=== PATIENT | male | born 1950 | race Caucasian/White ===

== ENCOUNTER 2024-10-02 18:29 | Emergency (ER) | payer OTHER, SELFPAY ==
[2024-10-02 18:32] VITALS: BP 174/98
[2024-10-02 19:00] LABS: % Basophils 0.7 % (0-2); % Eosinophils 3.9 % (0-6); % Immature Granulocytes 0.5 % (0-0.5); % Lymphocytes 25.9 % (20.5-51.1); Absolute Basophils 0.1 10^3/uL (0-0.2); Absolute Eosinophils 0.3 10^3/uL (0-0.7); Absolute Lymphocytes 1.9 10^3/uL (1.2-3.4); Absolute Monocytes 0.7 10^3/uL (0.1-0.6); Absolute Neutrophils 4.4 10^3/uL (1.4-6.5); Hematocrit 38.1 % (39.0-52.0); Hemoglobin 12.9 g/dL (13.0-18.0); Mean Corp Hgb Conc. 33.9 g/dL (33.0-37.0); Mean Corpuscular Hgb 30.3 pg (27.0-31.0); Mean Corpuscular Volume 89.4 fL (80.0-94.0); Mean Platelet Volume 10.2 fL (7.4-10.4); Nucleated Red Blood Cells % 0 % (-); Platelet Count 145 10^3/uL (130-400); Red Blood Cell Count 4.26 10^6/uL (4.70-6.10); Red Cell Dist. Width 14.9 % (11.5-14.5); White Blood Cell Count 7.4 10^3/uL (4.8-10.8)
[2024-10-02 19:20] LABS: ALT (SGPT) 36 U/L (0-50); AST (SGOT) 50 U/L (17-59); Albumin 4.2 g/dl (3.5-5.0); Alkaline Phosphatase 76 U/L (38-126); Blood Urea Nitrogen 18 mg/dl (9-20); Calcium 9.4 mg/dl (8.4-10.2); Carbon Dioxide 26 mmol/L (22-30); Chloride 101 mmol/L (98-107); Glucose 145 mg/dl (70-99); Potassium 4.2 mmol/L (3.5-5.1); Sodium 138 mmol/L (135-145); Total Protein 7.6 g/dl (6.3-8.2); eGFR 58.01
[2024-10-02 19:24] LABS: Troponin I < 0.012 ng/ml
[2024-10-02 20:15] VITALS: BP 186/94
[2024-10-02 21:00] VITALS: BP 153/83
--- NOTE | 2024-10-02 21:12 | ED.GENMED ---
History of Present Illness
General
Chief Complaint: Chest Pain
Source: patient
Exam Limitations: none
Time Seen by Provider: 10/02/24 20:41
History of Present Illness
History of Present Illness:
This is a 74 year old male that comes in with c/o chest pain and left flank/back pain. State that his chest pain comes and goes. States that he also has pain on the left lower back/flank area,below the ribs. State that this started on Monday.
States that he went to see the PCP last night and they did an ECG and told him this was normal and he was told to come to the Emergency room. States that he does get SOB with walking. Denies any fever, chills, abd pain, nausea, vomiting, diarrhea,
headache, dizziness, urinary burning
Past History
Past History
ED Past Medical History: HTN, IDDM and Other (Sleep apnea, AAA, Renal calculus)
ED Past Surgical History: Bowel resection (colostomy with reversal) and Cholecystectomy
Social History
Tobacco: Former smoker
Alcohol: None
Drug: None
Personal:
Living: with family
Review of Systems
Review of Systems
All Other Systems: ROS reviewed and negative except as documented in HPI and ROS
Constitutional: Reports no symptoms; Denies fever or chills
EENT: Reports no symptoms
Respiratory: Reports trouble breathing (with walking); Denies cough
Cardiac: Reports chest pain
ABD/GI: Denies no symptoms, abdominal pain, nausea, vomiting or diarrhea
: Reports flank pain (left sided)
Musculoskeletal: Reports no symptoms
Skin: Reports no symptoms
Neurological: Reports no symptoms; Denies dizzy or headache
Psychiatric: Reports no symptoms
Phy Exam
General Physical Exam
General Presentation: no apparent distress
General age: appears stated age
General Skin: warm and dry
General Habitus: elderly and obese
General Mental: alert
General Hydration: appears well hydrated
ENT Exam
ENT Exam: TM's normal, pharynx normal and neck supple
Eye Exam
Eye Exam: EOMI
Cardiovascular Exam
Cardiovascular Exam: regular rate/rhythm and normal peripheral pulses
Pulmonary Exam
Pulmonary Exam: lungs clear, no respiratory distress, no rales, chest non tender, no crackles, no rhonchi, no wheezing and no cough
Gastrointestinal Exam
Gastrointestinal Exam: normal bowel sounds, non tender, soft, no organomegaly, no pulsatile mass, non distended and other (Obese)
Musculoskeletal Exam
Musculoskeletal Exam: full ROM
Skin Exam
Skin Exam: normal color, warm/dry, no rash and no petechia
Psychiatric Exam
Psychiatric Exam: normal mood/affect
Scores
Heart Score for Chest Pain Patients
STEMI patient?: No
History: Slightly or Non-Suspicious
ECG: Normal
Age: >/= 65 years
Risk Factors: 1 or 2 Risk Factors
Troponin: </= Normal Limit
Heart Score for Chest Pain Patients: 3
Heart Score Risk: 2.5% MACE over next 6 weeks
Course
Orders/Labs/Results
Orders:
Orders
10/02/24 18:35
Electrocardiogram (*1) Urgent
Reason for Study: Chest Pain
EKG- Treatment ONCE
10/02/24 18:52
Complete Blood Count/With Diff Urgent
Comprehensive Metabolic Panel Urgent
Troponin I Urgent
10/02/24 21:12
CT Abd/pelvis W Iv Cont Urgent
Comment: AAA, 4.7cm
Reason For Exam: Left flank pain
10/02/24 21:13
0.9% Sodium Chloride 500 ml [Nss] 500 ml IV BOLUS
10/02/24 21:27
Troponin I Urgent
Urinalysis Reflex To Culture Urgent
Date Specimen was Collected: 10/02/24
Time Specimen was Collected: 21:15
Urine Microscopic Reflex Cult Urgent
Abnormal Lab Results
10/02/24 10/02/24
18:52 21:27
RBC 4.26 L 10^6/uL
(4.70-6.10)
Hgb 12.9 L g/dL
(13.0-18.0)
Hct 38.1 L %
(39.0-52.0)
RDW 14.9 H %
(11.5-14.5)
Absolute Monos (auto) 0.7 H 10^3/uL
(0.1-0.6)
Monocytes % 10.0 H %
(1.7-9.3)
Glucose 145 H mg/dl
(70-99)
Urine Albumin (Reflex) 1+ A
(Neg - Trace)
10/02/24 18:52
10/02/24 18:52
H/H slightly low. hyperglycemia. Troponin <0.012
Second Troponin <0.012
Vital Signs
Initial and Last Documented VS:
Initial Vital Signs
Temp Pulse Resp BP Pulse Ox
98.3 F 81 16 174/98 96
10/02/24 18:32 10/02/24 18:32 10/02/24 18:32 10/02/24 18:32 10/02/24 18:32
Last Documented Vital Signs
Temp Pulse Resp BP Pulse Ox
98.3 F 74 20 170/86 94
10/02/24 18:32 10/02/24 22:00 10/02/24 22:00 10/02/24 22:00 10/02/24 21:45
MDM/Problems Addressed
Differential Diagnosis Includes:
Renal calculus, coronary syndrome,
MDM/Problems Addressed:
This is a 74 year old male that comes in with c/o chest pain and left flank/back pain. states that this started on Monday.
Will check labs and get CT scan.
Back into see patient. Reviewed CT scan. Explained that both of his Troponin are normal. This may be musculoskeletal pain. Patient is to follow up with the family doctor. Patient can use heat or ice which ever makes him feel better. Patient can
take Tylenol 1000mg every 6 hours for pain Return with increased or changing pain.
Chronic conditions affecting care:
AAA, renal calculus,
Acute Exacerbation and/or Progression of Chronic Illness:
NA
*Radiology
Radiology exam reviewed: radiology read reviewed (CT-There is a 3.8cm fusiform infrarenal abdominal aortic aneurysm with associated fusiform dilation of the left common iliac artery to 2.8cm and right common iliac artery to 2.5cm. There are no
obstructing renal or ureteral calculi and there is no hydronephrosis. There is a 3mm nonobstructing), all reviewed NAD by ED Provider (CT cont- calculus in the interpolar portion of the left kidney. There area bilateral renal cysts measuring up to
2.4cm. There is multilevel lumbar degenerative disc disease. there is Proximal sigmoid anastomosis. There is cholecystectomy. There is diffuse fatty infiltration of the liver. There is a ) and other (T cont-2cm umbilical hernia which does not
contain bowel. )
*Pulse Oximetry
Patient hypoxic: no
*EKG
Interpreted by ED Provider?: Yes
Heart Rate: 80
Rate: normal
Rhythm: sinus
[place]: left axis deviation
Interval: normal interval
QRS Pattern: normal QRS
Ischemia: no ischemia
*Booth Supervisor Interpretation
Rate: normal
Heart Rate: 77
Rhythm: sinus
*Critical Care Note
Total Time (30-74mins, 75-104mins- exclusive of procedures): Not Applicable
ED Attending Note
-
Portions of this chart may have been created with voice recognition software.� Occasional wrong word or��sound alike� substitutions may have occurred due to the inherent limitations of voice recognition software.
Discharge Plan
Departure
Patient Disposition: Home (Routine Discharge)
Date of Disposition: 10/02/24
Time of Disposition: 23:08
Patient with high blood pressure during this ER visit?: Yes
Condition: Good
Covid-19: Not Applicable
Discharge Problem:
Back pain, Chest pain
Instructions: Back Pain, Chest Pain PCP Follow Up, BLOOD PRESSURE
Prescriptions:
No Action
naproxen sodium [Aleve] 220 MG tablet
220 mg PO PRN PRN (Reason: fever)
lorazepam 1 MG tablet
1 mg PO Q4HPRN PRN (Reason: anxiety) Qty: 20 0RF
cephalexin [Keflex] 500 MG capsule
500 mg PO TID Qty: 21 0RF
aspirin [Ecotrin Low Strength] 81 MG tablet,delayed release (DR/EC)
81 mg PO DAILY
metformin 1,000 MG tablet
1,000 mg PO BID
insulin asp prt-insulin aspart [Novolog Mix 70-30 U-100 Insuln] 1,000 UNITS/10 ML solution
15 - 18 units SC BID
Losartan
1 tab PO DAILY
Referrals:
Esther Riggs PA [Family Provider] - Follow up in 2-3 days
Activity Restrictions/Additional Instructions:
As discussed, your blood work is normal. Both Troponin which are specific for the heart are negative. Your CT shows a fatty liver but there are no renal calculus. There is a know Aneurysm. You have been given a disc of the CT scan to take to our
family doctor for follow up. This is most likely musculoskeletal pain. You may use heat or ice which ever makes you feel getter. You may also use Tylenol 1000mg every 6 hours for pain. IF YOU HAVE INCREASED OR CHANGING PAIN, OR YOU HAVE ANY OTHER
CONCERNS PLEASE RETURN TO THE EMERGENCY ROOM.
Interventions
Interventions:
*Risk Screen - Suicide Last Done: 10/02/24 18:35
*General Assessment Last Done: 10/02/24 20:22
*Neglect/Abuse Screening Last Done: 10/02/24 18:35
*ED COVID-19 Vaccine History Last Done: 10/02/24 20:22
ED- Cardiac Assessment Last Done: 10/02/24 20:22
Discharge Date and Time
Print Language: PALAUAN
[2024-10-02] MEDS: NSS 500 IV (21:23)
[2024-10-02 21:36] LABS: Urine Albumin 1+ (Neg - Trace); Urine Bilirubin Negative (Negative); Urine Character Clear (Clear); Urine Color Yellow; Urine Glucose Negative (Negative); Urine Ketone Negative (Negative); Urine Leukocyte Negative (Negative); Urine Nitrite Negative (Negative); Urine Occult Blood Negative (Negative); Urine Urobilinogen Negative (Neg - 1+)
[2024-10-02 21:59] LABS: Troponin I < 0.012 ng/ml
[2024-10-02 22:00] VITALS: BP 170/86
[2024-10-02 22:19] LABS: Urine Hyaline Cast 0-2 /LPF (0-2); Urine Squamous Cell >30 /LPF (Few)
[2024-10-02 22:20] LABS: Urine Red Blood Cell 0-2 /HPF (0-2); Urine White Cell 0-2 /HPF (0-5)
[2024-10-02 23:16] VITALS: BP 178/98
== END 2024-10-02 23:26 | disposition home or self-care (01) ==
LOC: EMR 18:29
PROVIDERS: Clinical Nurse Specialist Family Health; Student in an Organized Health Care Education/Training Program; EMERGENCY PHYSICIAN Emergency Medicine; FAMILY PHYSICIAN Physician Assistant Medical
DX: R07.89 Other chest pain (principal); R10.9 Unspecified abdominal pain; M54.50 Low back pain, unspecified; R06.02 Shortness of breath; K76.0 Fatty (change of) liver, not elsewhere classified; K42.9 Umbilical hernia without obstruction or gangrene; I71.43 Infrarenal abdominal aortic aneurysm, without rupture; M51.369 Other intervertebral disc degeneration, lumbar region without mention of lumbar back pain or lower extremity pain; E11.65 Type 2 diabetes mellitus with hyperglycemia; I10 Essential (primary) hypertension; G47.30 Sleep apnea, unspecified; N28.1 Cyst of kidney, acquired; Z79.4 Long term (current) use of insulin; Z79.82 Long term (current) use of aspirin; Z87.442 Personal history of urinary calculi; Z87.891 Personal history of nicotine dependence; Z90.49 Acquired absence of other specified parts of digestive tract; Z88.5 Allergy status to narcotic agent
CPT/HCPCS: 99285; 96360; 74177; 80053; 81003; 81015; 84484; 85025; 93005; Q9967

== ENCOUNTER 2025-05-03 17:20 | Inpatient (IN) | payer OTHER, MEDICARE, SELFPAY ==
[2025-05-03 12:54] VITALS: BP 186/109
[2025-05-03 13:25] VITALS: BMI 48.5
[2025-05-03 13:31] VITALS: BP 133/70
--- NOTE | 2025-05-03 14:36 | ED.GENMED ---
History of Present Illness
General
Chief Complaint: Skin Problem
Source: patient
Exam Limitations: none
Time Seen by Provider: 05/03/25 13:47
Nursing documentation reviewed up to this point in time: agreed with
History of Present Illness
History of Present Illness:
see MDM
Past History
Past History
ED Past Medical History: HTN, IDDM and Other (Sleep apnea, AAA, Renal calculus)
ED Past Surgical History: Bowel resection (colostomy with reversal) and Cholecystectomy
Social History
Tobacco: Former smoker
Alcohol: None
Drug: None
Personal:
Living: with family
Review of Systems
Review of Systems
Allergies reviewed?: Yes
All Other Systems: Not applicable
Phy Exam
Physical Exam
Physical Exam:
GENERAL: Alert , in no apparent distress exertional dyspnea; recovers at rest
EYE: pupils equal and reactive
NECK: Supple
ENT: o/p clr, mmm.
CARDIAC: Regular rate and rhythm .
LUNGS: Clear breath sounds bilaterally, no acute respiratory distress, no wheezes/rales/rhonchi
ABDOMEN: Soft, without focal tenderness, no r/g, no cvat, normal bowel sounds
NEUROLOGICAL: Alert and oriented, no focal neuro deficits
SKIN: Warm and dry, skin intact.
MUSCULOSKELETAL: dp pulses intact
toes all with onycomycosis
L great toe is ignificantly swollen, erythematous and with a wound with scab distally past the bumpy toenail plate that still is present with fungus; no drainage
no streaking proximally
mildly dtender
PSYCH: Normal and appropriate interaction.
Course
Orders/Labs/Results
Orders:
Orders
05/03/25 14:36
CR Foot - Left Min 3 Views Urgent
Comment:
Reason For Exam: great toe infection
05/03/25 14:54
CRP [C-Reactive Protein] Urgent
Complete Blood Count/With Diff Urgent
Comprehensive Metabolic Panel Urgent
ESR [Erythrocyte Sed Rate] Urgent
Blood Culture Q30M
CRUZITO Source: Blood/Venous
Specimen Description:
Blood Culture Q30M
CRUZITO Source: Blood/Venous
Specimen Description:
05/03/25 Dinner
2000 calorie (17 carb) Diabetic
At Your Request: Full Participation
Does patient need a safe tray?: No
05/03/25 15:40
Ampicillin/Sulbactam 3 G [Unasyn] 3 gm 0.9% Sodium Chloride 100 ml [Nss] 100 ml IV NOW
05/03/25 15:41
Vancomycin [Vancocin] 2,000 mg 0.9% Sodium Chloride 500 ml [Nss] 500 ml IV NOW
05/03/25 15:52
Vancomycin [Vancocin] 2,000 mg 0.9% Sodium Chloride 500 ml [Nss] 500 ml IV NOW
05/03/25 15:53
Ampicillin/Sulbactam 3 G [Unasyn] 3 gm 0.9% Sodium Chloride 100 ml [Nss] 100 ml IV NOW
05/03/25 16:45
Admit/Transfer Patient As Directed
Co-Sign Provider:
Level of Care: Inpatient admission
Assign to:: Medical/Surgical
Physician / Group: Hospitalist
Diagnosis: Diabetic infection of left foot
Reason for Hospitalization: Diabetic infection of left foot
Expected length of stay greater than two midnights?: Yes
ELOS- Estimated Length of Stay in days: 3
I certify the patient meets the requirements for IP care: Yes
PRN Pain Medication Management As Directed
May give lesser potent ordered pain med per pt: Yes
preference::
Protocol:: Medication orders for pain may be administered in a
manner that supports deferring to patient preference
when the pt is:
- Requesting an ordered lesser potent pain medication.
Least to most potent pain medications are defined
as: acetaminophen < NSAID < tramadol < opioids
(morphine, oxycodone, hydromorphone).
- Requesting a lesser dose of the same medication IF
ORDERED.
- Requesting a less intrusive route of administration
if both routes are prescribed by the provider (PO <
IV).
05/03/25 16:47
Code Status As Directed
Resuscitation Status: Full Code
05/03/25 18:06
Acetaminophen [Tylenol/Feverall] 650 mg RECTAL Q4HPRN PRN
Acetaminophen [Tylenol] 650 mg PO Q4HPRN PRN
Enoxaparin Sodium [Lovenox] 40 mg SC QPM
Lorazepam [Ativan] 1 mg PO Q4HPRN PRN anxiety
Piperacillin/Tazo 4.5 Gram [Zosyn] 4.5 gram in 100 ml IV Q6H
VANCOMYCIN Pharmacy to Dose [VANCOCIN Pharmacy to Dose] 1 each Pharmacy To Prepare [Call Pharmacy To Prepare] 0 ml IV PER PROTOCOL
05/03/25 18:06
Diabetes Education Consult Routine
Reason for Consult: Insulin Instruction
Newly Diagnosed?: No
PODIATRY CONSULT Routine
Consulting Provider: Viral Sosa
Was physician already notified: Yes
WOUND/OSTOMY CONSULT Routine
Reason for Consult: Left foot wound
Activity As Directed
Activity Level: Out of Bed-Early Mobility
Intake/ Output As Directed
Frequency: Per unit guidelines
Vital Signs As Directed
Frequency: Per unit guidelines
Lower Ext Arterial & CARLOS US [US Periph Art LOWER Ext w CARLOS] Routine
Comment:
Reason For Exam: faint pedal pulses and cellulitis of Left foot
DX Deep Vein Thrombosis Video Routine
05/03/25 18:39
MRSA Screen Routine
CRUZITO Source: Nose
Specimen Description:
05/03/25 20:00
insulin lispro protamin-lispro [Humalog Mix 75-25 KwikPen] 30 unit SC BID
05/04/25 06:22
Comprehensive Metabolic Panel IN AM
05/04/25 06:23
Complete Blood Count/No Diff IN AM
05/04/25 08:00
Citalopram [Celexa] 40 mg PO DAILY
Losartan [Cozaar] 100 mg PO DAILY
Sitagliptin Phosphate [Januvia] 100 mg PO DAILY
Abnormal Lab Results
05/03/25
14:54
RBC 3.62 L 10^6/uL
(4.70-6.10)
Hgb 11.3 L g/dL
(13.0-18.0)
Hct 32.9 L %
(39.0-52.0)
MCH 31.2 H pg
(27.0-31.0)
RDW 15.7 H %
(11.5-14.5)
Abs Immat Gran (auto) 0.2 H 10^3/uL
(0-0.05)
Absolute Monos (auto) 0.8 H 10^3/uL
(0.1-0.6)
Immature Gran % 2.8 H %
(0-0.5)
Lymphocytes % 16.3 L %
(20.5-51.1)
Monocytes % 9.8 H %
(1.7-9.3)
ESR 75 H mm/hour
(0-20)
Glucose 133 H mg/dl
(70-99)
Calcium 10.4 H mg/dl
(8.4-10.2)
C-Reactive Protein 12.60 H mg/L
(0.0-10.00)
05/03/25 14:54
05/03/25 14:54
Vital Signs
Initial and Last Documented VS:
Initial Vital Signs
Temp Pulse Resp BP Pulse Ox
36.9 C 96 16 186/109 99
05/03/25 12:54 05/03/25 12:54 05/03/25 12:54 05/03/25 12:54 05/03/25 12:54
Last Documented Vital Signs
Temp Pulse Resp BP Pulse Ox
37.1 C 75 18 130/68 97
05/04/25 07:36 05/04/25 08:38 05/04/25 07:36 05/04/25 08:38 05/04/25 07:36
MDM/Problems Addressed
Differential Diagnosis Includes:
see MDM
MDM/Problems Addressed:
Note:
CHIEF COMPLAINT(S)
Toenail injury with associated foot swelling and potential infection.
HISTORY OF PRESENT ILLNESS
The patient, a male, presented with concerns about a toenail injury sustained approximately three to four days ago. The patient reports the toenail came off while wearing sketchers, a type of covered shoe. Over the past few days, the area has become
increasingly swollen, raising concerns for possible infection. The patient has a history of diabetes and is currently on insulin and metformin. He denies fever or chills but expresses concern due to a family member, his brother, having had a leg
amputation related to diabetes. The patient experiences chronic shortness of breath as normal for him and reports mild neuropathy in his feet, which could contribute to delayed awareness of foot injuries. He denies any recent evaluations by a
assembler equipment and has not previously had similar infections.
PAST MEDICAL AND SURIGICAL HISTORY
The patient reports a history of diabetes and potentially some form of heart issue not conclusively identified as congestive heart failure, but suggests chronic heart concerns.
CHRONIC MEDICAL CONDITIONS SIGNIFICANTLY AFFECTING CARE
Diabetes mellitus
Possible cardiac condition requiring further evaluation (uncertain heart disease)
SOCIAL DETERMINANTS AFFECTING HEALTH
The patient is concerned about a family history of diabetes-related complications, specifically his brothers leg amputation, influencing his anxiety and prompting his visit.
MEDICATIONS
Insulin
Metformin
PHYSICAL EXAM
- Nursing notes reviewed and vital signs reviewed.
- onycomycosis
- Toenail is absent, and there is an increase in size and concern over the appearance of the injury site within a short time frame.
- The patient has chronic shortness of breath associated with his heart condition.
PLAN
The plan includes obtaining blood work and an X-ray to assess the extent of the infection. Discussion regarding possible hospital admission for IV antibiotics and advanced imaging, like an MRI, to rule out osteomyelitis was held. The patient
understands the necessity of prompt treatment to prevent further complications and is aware of the potential consequence of non-treatment as being very serious, including the risk of amputation. There is an implied consideration for hospital
admission if deemed necessary following initial results.
DIFFERENTIAL DIAGNOSIS
The Differential Diagnosis includes, in no particular order and is not limited to:
1. Diabetic foot infection
2. Osteomyelitis
3. Cellulitis
4. Traumatic nail removal
5. Peripheral neuropathy-related trauma
6. Chronic venous insufficiency
7. Heart failure exacerbation (related to swelling)
8. Gout
9. Onychomycosis with secondary bacterial infection
10. Peripheral vascular disease-related complications
74 y/o M
h/o DM
here with toe nail fungus chronically
injured L great toe nail somehow, isn't sure how, but there is a wound and bleeding distal great toe that became swollen, red, painful and draining over the past 3 days
no fever/chills
on exam pt's entire L great toe is swollen, red and there is pretty severe onycomycosis of all nails including L great toe nail plate and a wound with dried blood distally
pulseintact
crp elevated
xray indep reviewed, await rads report, no obvoius evidence of osteo
will admti for IV abx.
*Pulse Oximetry
SaO2: 94
Oxygen Mode of Delivery: Room air
Patient hypoxic: no (97)
*Critical Care Note
Total Time (30-74mins, 75-104mins- exclusive of procedures): Not Applicable
ED Attending Note
-
Portions of this chart may have been created with voice recognition software.� Occasional wrong word or��sound alike� substitutions may have occurred due to the inherent limitations of voice recognition software.
Discharge Plan
Departure
Patient Disposition: Admit
Date of Disposition: 05/03/25
Time of Disposition: 15:37
Admit to: Med/Surg
Presentation/result/management discussed w/ accepting MD/DO: Hospitalist
Condition: Fair
Covid-19: Not Applicable
Discharge Problem:
Diabetic infection of left foot
Interventions
Interventions:
*Risk Screen - Suicide Last Done: 05/03/25 20:51
*General Assessment Last Done: 05/03/25 13:26
*Neglect/Abuse Screening Last Done: 05/03/25 12:54
*ED- Fall Risk Assessment Last Done: 05/03/25 13:26
*ED COVID-19 Vaccine History Last Done: 05/03/25 13:26
*Nursing Disposition Last Done: 05/03/25 18:05
ED-Skin Assessment Last Done: 05/03/25 16:34
Discharge Date and Time
Discharge Date/Time: 05/03/25 18:06
[2025-05-03 15:20] LABS: Hematocrit 32.9 % (39.0-52.0); Hemoglobin 11.3 g/dL (13.0-18.0); Mean Corp Hgb Conc. 34.3 g/dL (33.0-37.0); Mean Corpuscular Volume 90.9 fL (80.0-94.0); Nucleated Red Blood Cells % 0 % (-); Platelet Count 161 10^3/uL (130-400); Red Cell Dist. Width 15.7 % (11.5-14.5)
[2025-05-03 15:32] LABS: C-Reactive Protein 12.60 mg/L (0.0-10.00)
[2025-05-03 15:43] LABS: ALT (SGPT) 30 U/L (0-50); AST (SGOT) 46 U/L (17-59); Albumin 4.0 g/dl (3.5-5.0); Alkaline Phosphatase 57 U/L (38-126); Blood Urea Nitrogen 20 mg/dl (9-20); Calcium 10.4 mg/dl (8.4-10.2); Carbon Dioxide 28 mmol/L (22-30); Chloride 104 mmol/L (98-107); Estimated Creatinine Clearance 74 ml/min; Glucose 133 mg/dl (70-99); Potassium 4.3 mmol/L (3.5-5.1); Sodium 139 mmol/L (135-145); Total Protein 7.5 g/dl (6.3-8.2); eGFR > 60.00
[2025-05-03 16:03] VITALS: BP 143/71
[2025-05-03] MEDS: UNASYN IV (16:08)
--- NOTE | 2025-05-03 16:34 | PHANOTE ---
med rec tech Eleanor Roberson note 05/03/25: pt tried to tell me the meds he takes, and then told me to just call [facility] pharmacy in [place]. I spoke to pharmacy staff there to confirm the meds he has been filling
[2025-05-03] MEDS: VANCOCIN 540 MG IV (16:47)
--- NOTE | 2025-05-03 16:54 | HPS.HSE ---
Family Physician
-
Family Physician: DOUGLAS Amor
Chief Complaint
-
Swelling of Left foot
History of Present Illness
This is a 74-year-old male with history of insulin requiring diabetes, history of abdominal aortic aneurysm, hypertension, anxiety presenting the emergency department with concerns of left foot pain, swelling and redness. Reports that initially his
symptoms started around Monday(4 days ago) when he was trying to wear covered shoes and his left foot great toe nail fell off. He had minimal pain initially which did continue to increase in addition to development of redness and swelling. He
denies fevers or chills. Denies any urinary or GI symptoms. He did not seek any care and did not utilize any medication. Given the ongoing redness and swelling he prompted to visit the emergency department. The patient is concerned about a
family history of diabetes related complication specifically his brother's leg amputation influencing his anxiety and his visit in the ER.
In the ER he had foot x-ray which did not show any acute abnormality.
Blood work showed hemoglobin of 11.3 with normal white count, ESR elevated to 75, CRP of 12.6, blood glucose of 133, calcium 10.4. Other electrolytes within normal limits.
He received 1 dose of IV Unasyn and 1 dose of IV vanco in the ER.
Medical History
Past Medical History
Past Medical History: Reports HTN, IDDM and Other (Anxiety)
Past Surgical History: Reports Other (Cataract)
Social History
Tobacco: Non-smoker
Alcohol: None
Drug: None
Personal:
Living: With Family
Family History
Family History: Diabetes
Allergies / Home Medications
Allergies reflects when Allergies were last updated in [email or web address].
Home Medications with original date entered in [email or web address]
Allergy/Medication List:
Allergies
Allergy/AdvReac Type Severity Reaction Status Date / Time
codeine Allergy 'I get Verified 05/03/25 12:57
crazy'
NOT.[id number] - Not Allergy Unknown Uncoded 05/03/25 12:57
Converted 38. See Text.
NOT.[id number] - Not Allergy Unknown Uncoded 05/03/25 12:57
Converted 65. See Text.
Home Medications
lorazepam 1 mg tablet 1 mg PO Q4HPRN PRN anxiety #20 tabs 03/16/11
naproxen sodium 220 mg tablet (Aleve) 660 mg PO PRN PRN mild pain 03/16/11
metformin 1,000 mg tablet 1,000 mg PO BID 06/18/16
citalopram 40 mg tablet 40 mg PO DAILY 05/03/25
insulin lispro protamine-lispro 100 unit/mL (75-25) subcutaneous pen (Humalog Mix 75-25 KwikPen) 30 unit SC BID 05/03/25
losartan 100 mg tablet 100 mg PO DAILY 05/03/25
sitagliptin phosphate 100 mg tablet (Januvia) 200 mg PO DAILY 05/03/25
Review of Systems
-
History Source: Patient
A 12 point ROS was completed and negative except as noted: Yes
Constitutional: Denies Fever
EENT: Denies Sore Throat
Respiratory: Denies Trouble Breathing
Cardiac: Denies Palpitations
Abdomen/GI: Denies Abdominal Pain
: Denies Dysuria or Frequency
Musculoskeletal: Denies Joint Pain
Physical Exam
Vital Signs
Vital Signs
Temp Pulse Resp BP Pulse Ox
98.4 F 82 18 143/71 99
05/03/25 12:54 05/03/25 16:26 05/03/25 16:26 05/03/25 16:03 05/03/25 16:26
Physical Exam
General: Well Nourished and Obese
HEENT: NormoCephalic
Respiratory: Clear and Non Labored Respirations
Cardiac: Regular Rhythm
GI: Soft, Non Tender and Distended
Musculoskeletal: Edema, Right Upper Extremity, Edema, Left Lower Extremity and Other (Erythema and swelling of left great toe. No visible discharge however there is only a partial left great toe nail, 2+ pedal pulse on the right and 1+ on the left )
Skin: Warm
Neuro: Awake, Alert and Oriented
Psych: Calm
Laboratory Results
-
05/03/25 14:54
05/03/25 14:54
Laboratory Results
Total Bilirubin 1.0 mg/dl (0.2-1.3) 05/03/25 14:54
AST 46 U/L (17-59) 05/03/25 14:54
ALT 30 U/L (0-50) 05/03/25 14:54
Alkaline Phosphatase 57 U/L (38-126) 05/03/25 14:54
Data Reviewed
-
Diagnostic Radiology: Report Reviewed by me, Discussed with Physician and Discussed with Patient
Lab Data: Labs Reviewed by me, Discussed with Physician, Discussed with Patient and Discussed with Family
Impression/Plan
-
74-year-old male with history of insulin requiring diabetes presenting in the emergency department with complaints of left foot pain, swelling and redness.
#Diabetic left foot infection ; possible cellulitis
# Onychomycosis with possible secondary bacterial infection
-Osteomyelitis is unlikely but not ruled out; will hold off on MRI for now
-Start Zosyn and Vanco empirically
-Awaiting blood cultures; check MRSA screen
-Foot x-ray without any acute abnormalities
-Check CARLOS for possible peripheral vascular disease
-Podiatry and wound consult
-Tylenol for pain
- ESR and CRP elevated; repeat in the a.m. with CBC and CMP
#Insulin-dependent diabetes
- Hold metformin, continue Januvia and home insulin with sliding scale
- Per patient last A1c 6.8; check A1c in the a.m.
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
# Hypertension
- Continue losartan
#Anxiety
- Continue citalopram
# History of abdominal aortic aneurysm
- Reported the last measurement was 3.8 cm
DVT prophylaxis: Lovenox
CODE STATUS: Full code
[2025-05-03 17:00] VITALS: BP 133/80
--- NOTE | 2025-05-03 17:13 | CM ---
CM reviewed chart and met with pt and bedside in ED, lives with in 2 story home, first floor half BA, second floor BR/full BA
Independent in ADLs, personal care and ambulation at baseline. No assistive devices.
No hx VN/SNF
PCP: Esther Riggs
Pharmacy: [facility] in [place] in [place]
CM will continue to follow for all discharge planning needs.
[2025-05-03 18:24] LABS: Glucose - Point of Care 171 mg/dl (70-99)
[2025-05-03 18:28] VITALS: BP 152/83; BMI 47.7
[2025-05-03] MEDS: LOVENOX 40 MG SC (18:31)
--- NOTE | 2025-05-03 18:31 | PHA.VAN.IN ---
Assessment
- Assessment
Renal Function: Appears similar to baseline
Maximum Temperature: 99.1F
Minimum Temperature: 98.4F
Concomitant Antimicrobials: Zosyn
AUC Dosing Plan
- Dosing Variables
Dosing Weight (kg): 137
Dosing CrCl (ml/min): 74
Vd coefficient (L/kg): 0.5
- Empiric Dosing
Initial / Loading Dose: 2000 mg
Maintenance Regimen: 1000 mg Q12H
Estimated AUC (mcg*h/mL): 448
Estimated Peak (mcg*h/mL): 26.2
Estimated Trough (mcg/ml): 12.7
Estimated Half Life (H): 10.5
- Monitoring
No levels ordered at this time: Awaiting steady state
Pharmacokinetics Vancomycin I
- -
Patient Age: 74
Patient Sex: Male
Vancomycin Day #: 1
Indication: Skin And Soft Tissue
Requesting Provider: Franck
Pertinent Antimicrobial Allergies:
No pertinent antibiotic allergies
Height / Weight:
Height 5 ft 7 in
Actual Weight 137.892 kg
IBW in k.1
Adjusted BW in k.8
Pertinent Past Medical History: T2DM c/b neuropathy, obesity
- Vital Signs / Lab Results
Temp Pulse Resp BP Pulse Ox
99.1 F 86 20 152/83 95
05/03/25 18:28 05/03/25 18:28 05/03/25 18:28 05/03/25 18:28 05/03/25 18:28
Lab Results - Hematology
05/03/25
14:54
WBC 8.1
Lab Results - Chemistry
05/03/25
14:54
BUN 20
Creatinine 1.2
Estimated Creat Clear 74
Albumin 4.0
--- NOTE | 2025-05-03 19:13 | PTCARENOTE ---
Received PT from ED. AAOX4. PT ambulated form srecher to bed. VSS WNL. Plan of care is ongoing.
[2025-05-03] MEDS: ZOSYN 100 IV (19:25)
[2025-05-03 19:55] LABS: Glucose - Point of Care 234 mg/dl (70-99)
[2025-05-03] MEDS: ATIVAN 1 MG PO (21:00)
[2025-05-03] MEDS: NOVOLOG MIX 70/30 FLEXPEN 30 UNITS SC (21:00)
[2025-05-03 23:25] VITALS: BP 103/57
[2025-05-04] MEDS: ZOSYN 100 IV ×5 (00:30→23:33)
[2025-05-04 06:30] VITALS: BMI 47.2
[2025-05-04 07:01] LABS: Hematocrit 29.6 % (39.0-52.0); Hemoglobin 10.0 g/dL (13.0-18.0); Mean Corp Hgb Conc. 33.8 g/dL (33.0-37.0); Mean Corpuscular Volume 90.5 fL (80.0-94.0); Platelet Count 138 10^3/uL (130-400); Red Cell Dist. Width 15.7 % (11.5-14.5)
[2025-05-04 07:33] LABS: ALT (SGPT) 27 U/L (0-50); AST (SGOT) 41 U/L (17-59); Albumin 3.5 g/dl (3.5-5.0); Alkaline Phosphatase 54 U/L (38-126); Blood Urea Nitrogen 19 mg/dl (9-20); Calcium 9.8 mg/dl (8.4-10.2); Carbon Dioxide 27 mmol/L (22-30); Chloride 105 mmol/L (98-107); Estimated Creatinine Clearance 63 ml/min; Glucose 121 mg/dl (70-99); Potassium 4.4 mmol/L (3.5-5.1); Sodium 137 mmol/L (135-145); Total Protein 6.6 g/dl (6.3-8.2); eGFR 53.07
[2025-05-04 07:36] VITALS: BP 130/68
[2025-05-04 07:40] LABS: C-Reactive Protein 15.40 mg/L (0.0-10.00)
--- NOTE | 2025-05-04 08:14 | W.PN.HOSP.TC ---
Addendum entered and electronically signed by Hafsa Lopez MD 05/04/25 12:47:
I saw and evaluated the patient. I reviewed the resident�s note and agree with findings and plan as documented in the resident�s note.
# L toe nail laceration, L foot cellulitis
Foot x-ray without any acute abnormalities
erythema improving on Abx
Cont Zosyn and Vanco empirically
Follow blood cultures
Check CARLOS for possible peripheral vascular disease although pedal pulse intact
Podiatry and wound care consult
PT eval
Original Note:
Today's Communication/Plan
-
Continue empiric Zosyn and Vanco
MRSA and wound culture pending
Podiatry consult pending
PT OT
Assessment / Plan
Assessment / Plan
74-year-old male with history of insulin requiring diabetes presenting in the emergency department with complaints of left foot pain, swelling and redness.
# Sepsis secondary to diabetic left foot infection ; nonpurulent cellulitis
# Onychomycosis with possible secondary bacterial infection
-Osteomyelitis is unlikely but not ruled out; will hold off on MRI for now
-Start Zosyn and Vanco empirically
-Awaiting blood cultures; MRSA pending
-Foot x-ray without any acute abnormalities
-Check CARLOS for possible peripheral vascular disease
-Podiatry and wound consult
-Tylenol for pain
- ESR 75-->82
- 12.6---> 15.4
#Insulin-dependent diabetes
- Hold metformin, continue Januvia and home insulin with sliding scale
- Per patient last A1c 6.8; repeat A1c pending
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
# Hypertension
- Continue losartan
#Anxiety
- Continue citalopram
# History of abdominal aortic aneurysm
- Reported the last measurement was 3.8 cm
# Morbidly obese; BMI of 47
- Encouraged low-carb diet, daily exercise.
DVT prophylaxis: Lovenox
CODE STATUS: Full code
Anticipated Discharge: 24 - 48 hours
Subjective/Interval History
-
Date of Service: May 04, 2025
Seen and examined at bedside. Patient sitting comfortably in the bed. AFVSS.
Objective Data
-
Labs:
Laboratory Results
05/04/25 05/04/25
06:22 06:23
WBC 7.3
Hgb 10.0 L
Hct 29.6 L
Plt Count 138
Sodium 137
Potassium 4.4
Chloride 105
Carbon Dioxide 27
BUN 19
Creatinine 1.4 H
Glucose 121 H
Calcium 9.8
Total Bilirubin 0.9
AST 41
ALT 27
Alkaline Phosphatase 54
Vital Signs:
Vital Signs
Temp Pulse Resp BP Pulse Ox
98.3 F 80 18 103/57 97
05/03/25 23:25 05/03/25 23:25 05/03/25 23:25 05/03/25 23:25 05/03/25 23:25
Review of Systems
-
History Source: Patient
All other systems: Reviewed and negative (Except as documented)
Physical Exam
-
General: Well Developed, No Apparent Distress and Obese
HEENT: Normocephalic
Respiratory: Clear to Auscultation and Non Labored Respirations
Cardiac: Regular Rhythm and S1/S2
GI: Soft and Nontender
Musculoskeletal: Edema, Right Lower Extrem and Edema, Left Lower Extrem
Skin: Warm, Dry and Other (pulses 2+ to RLE and 1+ to LLE. Left great toe with erythema and edema, absent toenail, no purulent drainage. Capillary refill <2 s. )
Neuro: Awake, Alert and Oriented
Psych: Calm
Data Reviewed
-
Labs: Labs Reviewed by me, Discussed with Physician and Discussed with Patient
--- NOTE | 2025-05-04 08:16 | PHA.VAN.FU ---
Vancomycin Assessment / Plan
- Assessment
Renal Function: SCR Increasing
WBC's are: WNL
In the past 24 hrs, patient has been: Afebrile
Concomitant Antimicrobials: piperacillin/tazobactam
- Dosing Plan
Continue: vancomycin 1000 mg Q12H
- Monitoring Plan
No level(s) ordered at this time: consider levels in next few days
- Follow Up
Pharmacy will continue to follow.
Vancomycin Follow UP
- -
Patient Age: 74
Patient Sex: Male
Vancomycin Day #: 2
Indication: Skin And Soft Tissue
Requesting Provider: Franck
Pertinent Antimicrobial Allergies:
No pertinent antibiotic allergies
Height / Weight:
Height 5 ft 7 in
Actual Weight 136.486 kg
IBW in k.1
Adjusted BW in k.8
Pertinent Past Medical History: T2DM c/b neuropathy, obesity
- Vital Signs / Lab Results
Temp Pulse Resp BP Pulse Ox
98.3 F 80 18 103/57 97
05/03/25 23:25 05/03/25 23:25 05/03/25 23:25 05/03/25 23:25 05/03/25 23:25
Lab Results - Hematology
05/03/25 05/04/25
14:54 06:23
WBC 8.1 7.3
Lab Results - Chemistry
05/03/25 05/04/25
14:54 06:22
BUN 20 19
Creatinine 1.2 1.4 H
Estimated Creat Clear 74 63
Albumin 4.0 3.5
[2025-05-04 08:17] LABS: Glucose - Point of Care 145 mg/dl (70-99)
[2025-05-04] MEDS: JANUVIA 100 MG PO (08:38)
[2025-05-04] MEDS: NOVOLOG FLEXPEN-LOW RESISTANCE SC ×3 (08:38→16:53)
[2025-05-04] MEDS: CELEXA 40 MG PO (08:38)
[2025-05-04] MEDS: COZAAR 100 MG PO (08:38)
[2025-05-04] MEDS: NOVOLOG MIX 70/30 FLEXPEN 30 UNITS SC ×2 (08:39→20:59)
[2025-05-04] MEDS: VANCOCIN 200 IV ×2 (08:41→19:51)
[2025-05-04] MEDS: TYLENOL 650 MG PO ×2 (08:43→19:51)
[2025-05-04 09:56] LABS: Glycohemoglobin (HgbA1c) 6.8 % (4.0-5.6)
[2025-05-04 10:15] VITALS: BP 130/67; PULSE 91
--- NOTE | 2025-05-04 10:21 | PTOTSP ---
Pt is able to get OOB and ambulate without an assistive device. No acute PT needs were identified. PT will sign off.
[2025-05-04 10:57] VITALS: BP 130/67; PULSE 91
[2025-05-04 11:52] LABS: Glucose - Point of Care 159 mg/dl (70-99)
--- NOTE | 2025-05-04 12:45 | W.CS.POD ---
Consult Summary - Podiatry
-
This patient is a 74 year old male with PMH of Insulin dependent DM with peripheral neuropathy, HTN, and h/o AAA admitted yesterday for cellulitis of the left foot. He states he was on vacation in [place] 2 weeks ago and he tried to trim his
toenails when the left great toenail 'fell off.' His dressed the area with Neopsporin every day. The family states he went in the pool a couple of times but with a waterproof dressing. Approximately 7-10 days ago, he started noticing swelling
and redness to the foot worsening with time, prompting him to come to the ER yesterday, at the urging of his daughter (nurse). He denies fever, chills or sweats. Reports only mild occasional discomfort in the toe/foot however he reports having some
numbness in both feet. He does not follow with a stock selector for diabetic foot care.
Afebrile, VSS
WBC: 7.3
ESR: 82
HbA1C: 6.8
Blood Cx x 2: Pending
Wound culture?
05/03/25: XRAY, left foot: There is no recent cortical fracture, dislocation or focal cortical bony destructive process. No evidence for osteomeyelitis.
LE Exam:
Pedal pulses palpable +2/4, bilaterally. Capillary refill to the digits 1-2 seconds, bilaterally. Significant loss of protective sensation of both LE.
Moderate edema and erythema of the left great toe and foot. No lymphangitis appreciated. There is dried blood and hypergranular tissue over the distal medial aspect of the exposed nail bed. Debridement reveals a 2-3mm wound, which probes directly to
bone (distal phalanx). This area is quite painful to the patient. No active purulence, no malodor. No proximal tracking.
Assessment:
Diabetic foot infection, with clinical suspicion for osteomyelitis, left great toe.
No radiographic evidence of osteomyelitis.
IDDM with diabetic neuropathy
HTN
H/O AAA
Plan:
Bedside excisional debridement of nonviable and hypergranular skin and SQ tissue about the left great toe wound, to a healthy bleeding base. Adaptic, dry gauze dressing applied.
Will order MRI to rule out osteomyelitis of the left great toe.
Patient advised to stay off the foot except for going from bed to bathroom.
Surgical shoe ordered.
Recommend ID consult.
[2025-05-04 15:09] VITALS: BP 114/55
[2025-05-04 16:49] LABS: Glucose - Point of Care 183 mg/dl (70-99)
[2025-05-04] MEDS: LOVENOX 40 MG SC (16:54)
[2025-05-04 20:48] LABS: Glucose - Point of Care 206 mg/dl (70-99)
[2025-05-04] MEDS: ATIVAN 1 MG PO (21:02)
[2025-05-04 23:12] VITALS: BP 109/53
[2025-05-05] MEDS: ZOSYN 100 IV ×3 (05:04→17:57)
--- NOTE | 2025-05-05 07:31 | W.PN.HOSP.TC ---
Addendum entered and electronically signed by Osiel Feng MD 05/05/25 22:10:
Attending Addendum-
I saw and evaluated the patient. I reviewed the resident�s note and agree with findings and plan as documented in the resident�s note. Sub: pain well controlled in left foot. Denies fevers chills. Full 12 point ROS reviewed and negative except as
documented Exam: Vitals reviewed in chart GEN-NAd heart RRR no MRG lungs clear abd soft obese LE- LLE bandaged no pain to palpation no edema b/l pulses +2 DP
# Sepsis secondary to diabetic left grat toe infection with cellulitis
# Onychomycosis with possible secondary bacterial infection
-r/o OM per pods with MRI-P
-cont Zosyn day 3 and DC Vanco
-blood cultures NGTD
-CARLOS b/l WNL
-8/10- pods bedside excisional debridement of nonviable and hypergranular skin and SQ tissue about the left great toe wound, to a healthy bleeding base
-CTM closely
#SOL
- unclear if CKD
- worsening, avoid NT agent renally adjust meds as warranted
- DC vanco hold losartan
- cont IVF
- BMP in am
#Insulin-dependent diabetes with diabetic neuropathy
- Hold metformin, continue Januvia and insulin 70/30 30BID (home dose) with sliding scale
# Hypertension
- hold losartan
#Anxiety
- Continue citalopram
# History of abdominal aortic aneurysm
- Reported the last measurement was 3.8 cm
# Morbidly obese; BMI of 47
- Encouraged low-carb diet, daily exercise.
DVT prophylaxis: Lovenox
CODE STATUS: Full code
ACP
Patient consented to discuss, was alone, time spent explanation of advance directives, changes in health status, patient�s health care wishes if the patient becomes unable to make health decisions, goals of care, code status, and prognosis 'yes do
it all if needed'- 16 minutes
Time spent coordinating care, review of plan of care with resident, personally reviewed previous records in EMR, med rec, labs, radiology, d/w nursing, family total time documented is exclusive of any additional time listed that was spent in advance
care planning discussion -�51 minutes
Original Note:
Today's Communication/Plan
-
Continue IV Zosyn for now; discontinue Vanco
MRI left foot
IV fluid
Repeat labs in the a.m.
Assessment / Plan
Assessment / Plan
74-year-old male with history of insulin requiring diabetes presenting in the emergency department with complaints of left foot pain, swelling and redness.
# Sepsis secondary to diabetic left foot infection ; nonpurulent cellulitis
# Onychomycosis with possible secondary bacterial infection
-Osteomyelitis is unlikely but not ruled out; podiatry ordered an MRI which is pending
-Maintain Zosyn day 3 and Vanco d/c since mrsa neg
-Awaiting blood cultures NGTD
-Foot x-ray without any acute abnormalities
-Normal CARLOS b/l
-Podiatry and wound following
-Tylenol for pain
-ESR 75-->82-->93
-CRP 12.6---> 15.4
--s/p 8/10 Bedside excisional debridement of nonviable and hypergranular skin and SQ tissue about the left great toe wound, to a healthy bleeding base
-- Advised to avoid pressure on the foot except going to the bathroom.; Podiatry also ordered a surgical shoe.
#SOL
- SCr increase from 1.4 to 1.7
- Could be due to sepsis
- IVF for now
- AVoid nephrotoxic drugs
- Creatine clearance of 52; no need to adjust lovenox and zosyn at this time.
#Insulin-dependent diabetes with diabetic neuropathy
- Hold metformin, continue Januvia and home insulin with sliding scale
- Per patient last A1c 6.8; repeat A1c 6.8
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
# Hypertension
- Continue losartan
#Anxiety
- Continue citalopram
# History of abdominal aortic aneurysm
- Reported the last measurement was 3.8 cm
# Morbidly obese; BMI of 47
- Encouraged low-carb diet, daily exercise.
DVT prophylaxis: Lovenox
CODE STATUS: Full code
Anticipated Discharge: Within 24 hours
Subjective/Interval History
-
Date of Service: May 05, 2025
seen and examined at bedside. lying comfortable in bed. Offers no new complaints.
Objective Data
-
Labs:
Laboratory Results
05/05/25
07:29
WBC Pending
Hgb Pending
Hct Pending
Plt Count Pending
Sodium Pending
Potassium Pending
Chloride Pending
Carbon Dioxide Pending
BUN Pending
Creatinine Pending
Glucose Pending
Calcium Pending
Vital Signs:
Vital Signs
Temp Pulse Resp BP Pulse Ox
98.3 F 75 18 109/53 98
05/04/25 23:12 05/04/25 23:12 05/04/25 23:12 05/04/25 23:12 05/04/25 23:12
I&O
05/04/25 05/05/25 05/06/25
06:59 06:59 06:59
Intake Total 1540 / 1540
Balance 1540 / 1540
Review of Systems
-
History Source: Patient
All other systems: Reviewed and negative (Except as documented)
Physical Exam
-
General: Well Developed, No Apparent Distress and Obese
HEENT: Normocephalic
Respiratory: Clear to Auscultation and Non Labored Respirations
Cardiac: Regular Rhythm and S1/S2
GI: Soft and Nontender
Musculoskeletal: Edema, Right Lower Extrem and Edema, Left Lower Extrem
Skin: Warm, Dry and Other (pulses 2+ to RLE and 1+ to LLE. Left great toe with erythema and edema, absent toenail, no purulent drainage. Capillary refill <2 s. )
Neuro: Awake, Alert and Oriented
Psych: Calm
Data Reviewed
-
Labs: Labs Reviewed by me, Discussed with Physician and Discussed with Patient
[2025-05-05 07:40] VITALS: BP 127/68
[2025-05-05 08:29] LABS: Glucose - Point of Care 126 mg/dl (70-99)
[2025-05-05] MEDS: NOVOLOG FLEXPEN-LOW RESISTANCE SC ×3 (08:59→18:55)
[2025-05-05] MEDS: VANCOCIN 200 IV (09:00)
[2025-05-05] MEDS: NOVOLOG MIX 70/30 FLEXPEN 30 UNITS SC ×2 (09:01→21:18)
[2025-05-05] MEDS: JANUVIA 100 MG PO (09:01)
[2025-05-05] MEDS: COZAAR 100 MG PO (09:01)
[2025-05-05] MEDS: CELEXA 40 MG PO (09:01)
[2025-05-05 09:13] LABS: Hematocrit 30.2 % (39.0-52.0); Hemoglobin 10.1 g/dL (13.0-18.0); Mean Corp Hgb Conc. 33.4 g/dL (33.0-37.0); Mean Corpuscular Volume 92.4 fL (80.0-94.0); Nucleated Red Blood Cells % 0 % (-); Platelet Count 132 10^3/uL (130-400); Red Cell Dist. Width 16.0 % (11.5-14.5)
--- NOTE | 2025-05-05 09:32 | WOUNDNOTE ---
L GREAT TOE TIP
--- NOTE | 2025-05-05 09:33 | WOUNDNOTE ---
[facility] RN note: Patient admitted with diabetic infection L great toe with ulcer. 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
See H&P for complete history.
PMH: IDDM, HTN, SUBHASH, AAA, former smoker (quit 30 years ago), obesity.
Wound Location and type/assessment: Patient admitted with: L distal great toe full thickness diabetic ulcer with yellow slough. L great toe with dull erythema, some edema. +Palpable L pedal pulse. Tract L foot edema. NRI and arterial Doppler on
order. Patient stated he is not interested in compression stockinet.
Appetite: good.
Pressure redistribution devices in place: [employer] Accumax. Patient moves self in bed. Dr. Sosa following who ordered WB L foot in surgical shoe from bed to bathroom. Discussed with RN Gian.
Plan: L great toe dressing changed.
Will confirm orders with Dr. Sosa.
Care plan to be updated and will follow peripherally as needed. Patient to follow up with business control manager.
[2025-05-05 09:37] LABS: Blood Urea Nitrogen 19 mg/dl (9-20); Calcium 9.5 mg/dl (8.4-10.2); Carbon Dioxide 28 mmol/L (22-30); Chloride 107 mmol/L (98-107); Estimated Creatinine Clearance 52 ml/min; Glucose 148 mg/dl (70-99); Potassium 4.8 mmol/L (3.5-5.1); Sodium 140 mmol/L (135-145); eGFR 42.04
--- NOTE | 2025-05-05 12:01 | PTCARENOTE ---
05/05/2025 DIABETES EDUCATION CONSULT
I met with Royce to review diabetes management. His last HbA1c was 6.8%, has been on Ozempic 0.25 mg for one month, and takes Humalog 75/25 BID. I educated Royce that he is currently prescribed Novolog sliding scale in addition to his other DM
medications. I educated and demonstrated on insulin injection technique, timing, and storage. Discussed intermediate and rapid acting insulin; onset/peak/duration. Discussed normal target glucose ranges and a monitoring schedule 15 minutes
before each meal when prescribed Novolog, and preprandial AM and/or bedtime as recommended by MD.
He wears a CGM, states his postprandial breakfast BS is typically 200 and if he eats PB and crackers for breakfast his glucose will increase to over 200 mg/dL. Discussed higher protein breakfast options to keep glucose levels more stable throughout
the day.
I educated on physiology of T2D, organ damage, managing with medications, monitoring BG, nutrition, activity, sleep and managing stress. I reinforced signs of hyperglycemia, hypoglycemia and hypoglycemia protocol; BS parameters and recommended HbA1c
goals, glucose tracker, medic alert bracelet and outpatient DSME program. Written material provided.
Encouraged patient to follow up with his PCP for post d/c appointment and to monitor medication and blood glucose levels. Provided list of endocrinologists, supervisor compressed yeast, and ophthalmologists if desired, and to contact insurance company to verify
in network status. Patient verbalized understanding.
[2025-05-05 12:41] LABS: Glucose - Point of Care 149 mg/dl (70-99)
[2025-05-05] MEDS: TYLENOL 650 MG PO (13:19)
[2025-05-05] MEDS: ATIVAN 1 MG PO ×2 (13:23→21:26)
[2025-05-05 15:40] VITALS: BP 106/47
[2025-05-05] MEDS: NSS 1000 IV (16:16)
[2025-05-05 17:54] LABS: Glucose - Point of Care 192 mg/dl (70-99)
[2025-05-05] MEDS: LOVENOX 40 MG SC (17:57)
--- NOTE | 2025-05-05 19:57 | W.PN.POD ---
Today's Communication
Today's Communication
Increasing clinical suspicion of osteomyelitis, left great toe.
Await MRI report. Anticipate need for surgical debridement tomorrow.
Assessment / Plan
-
Assessment:
Diabetic foot infection, with clinical suspicion for osteomyelitis, left great toe.
No radiographic evidence of osteomyelitis.
IDDM with diabetic neuropathy
HTN
H/O AAA
Plan:
Adaptic, dry gauze dressing applied.
Continue IV antibiotics.
Patient advised to stay off the foot except for going from bed to bathroom.
Surgical shoe ordered (DARCO wedge)
Recommend ID consult.
With the increasing clinical likelihood of osteomyelitis of the left great toe, I discussed with the patient the possible need for surgical debridement of the infected bone in order to spare the spreading of the infection more proximally.
Should this be necessary, we would anticipate surgery for tomorrow evening.
MRI report pending. Will follow.
Subjective
Chief Complaint
Diabetic infection, left great toe
Subjective
Patient seen sitting at bedside. Pain in toe /10. Denies fever, chills or sweats.
Objective
05/05/25: Arterial U/S, LE:
1. Normal ankle brachial indices on each side. Normal toe brachial indices.
2. Minimal arterial plaque, without focal significant arterial stenosis demonstrated on either side.
3. Normal spectral Doppler waveform analysis of each lower extremity.
Left Lower Extremity:
Left Brachial pressure: 139 mmHg
Left DPA: 131 mmHg
Left SAT TUTOR: 148 mmHg
Left CARLOS: DPA 0.94 SAT TUTOR 1.06,
Left TBI: 1.04
05/05/25: MRI left foot
My personal review of images reveals hypointense signal of the hallux distal phalanx on STIR views consistent with osteomyelitis, without clear hypertense signal on T1.
Will defer to radiology report.
Temp Pulse Resp BP Pulse Ox
98.3 F 69 16 106/47 97
05/05/25 15:40 05/05/25 15:40 05/05/25 15:40 05/05/25 15:40 05/05/25 15:40
05/05/25 08:30
05/05/25 08:30
Vital Signs and Lab results were reviewed.
Afebrile, VSS
WBC: 6.2
ESR: 82
HbA1C: 6.8
Blood Cx x 2: Negative x 48 hours.
05/03/25: XRAY, left foot: There is no recent cortical fracture, dislocation or focal cortical bony destructive process. No evidence for osteomeyelitis.
LE Exam:
Pedal pulses palpable +2/4, bilaterally. Capillary refill to the digits 1-2 seconds, bilaterally. Significant loss of protective sensation of both LE.
Moderate edema,erythema and cellulitis of the left foot and great toe somewhat improved. No lymphangitis appreciated.
The distal dorsal hallux wound within nail bed, now slightly larger at 0.6cm in diameter round, with fibrinous base, serous discharge, probing directly to bone (distal phalanx). This area is quite painful to the patient. No active purulence, no
malodor. No proximal tracking.
[2025-05-05 21:05] LABS: Glucose - Point of Care 218 mg/dl (70-99)
[2025-05-05 23:17] VITALS: BP 144/80
[2025-05-06] MEDS: ZOSYN 100 IV ×5 (00:37→23:53)
[2025-05-06] MEDS: NSS 1000 IV ×3 (03:33→23:53)
--- NOTE | 2025-05-06 07:17 | W.PN.HOSP.TC ---
Addendum entered and electronically signed by Osiel Feng MD 05/06/25 21:48:
Attending Addendum-
I saw and evaluated the patient. I reviewed the resident�s note and agree with findings and plan as documented in the resident�s note. Sub: complains of pain in left great toe. Denies fevers chills. Full 12 point ROS reviewed and negative except as
documented Exam: Vitals reviewed in chart GEN-NAd heart RRR no MRG lungs clear abd soft obese LE- LLE bandaged no pain to palpation no edema b/l pulses +2 DP
# Sepsis secondary to diabetic left great toe osteomyelitis with surrounding cellulitis
-Left Foot MRI 05/05-Acute osteomyelitis of the first distal phalanx adjacent to the distal first toe soft tissue wound
-cont Zosyn day #4
-blood cultures NGTD
-CARLOS b/l WNL
-05/04- pods bedside excisional debridement of nonviable and hypergranular skin and SQ tissue about the left great toe wound, to a healthy bleeding base
-for surgical debridement possibly partial toe amputation with pods-05/06
-c/s ID for management pos OP
-CTM closely
#SOL on CKD (probable)
- improving, avoid NT agents, renally adjust meds as warranted
- hold losartan
- cont IVF
- BMP in am
#Insulin-dependent diabetes with diabetic neuropathy
- Hold metformin, continue Januvia and insulin 70/30 30BID (home dose) with sliding scale (1/2 dose whe NPO)
# Hypertension
- hold losartan
#Anxiety
- Continue citalopram
# History of abdominal aortic aneurysm
- Reported the last measurement was 3.8 cm
# Morbidly obese; BMI of 47
- Encouraged low-carb diet, daily exercise.
DVT prophylaxis: Lovenox
CODE STATUS: Full code
Time spent coordinating care, review of plan of care with resident, personally reviewed records in EMR, med rec, consults, notes, labs, radiology, d/w nursing � 52 mins
Original Note:
Today's Communication/Plan
-
N.p.o. for surgical debridement today
Continue Zosyn for now
ID consult
Assessment / Plan
Assessment / Plan
74-year-old male with history of insulin requiring diabetes presenting in the emergency department with complaints of left foot pain, swelling and redness.
# Sepsis secondary to diabetic left foot infection ; nonpurulent cellulitis
# Onychomycosis with possible secondary bacterial infection
-Osteomyelitis. MRI: Acute osteomyelitis of the first distal phalanx adjacent to the distal first toe soft tissue wound.
-Maintain Zosyn day 4 and Vanco d/c since mrsa neg
-Awaiting blood cultures NGTD
-Foot x-ray without any acute abnormalities
-Normal CARLOS b/l
-Podiatry and wound following; surgical debridement planned for today
-Tylenol for pain
-ESR 75-->82-->93-->97
-CRP 12.6---> 15.4
--s/p 8/10 Bedside excisional debridement of nonviable and hypergranular skin and SQ tissue about the left great toe wound, to a healthy bleeding base
-- Advised to avoid pressure on the foot except going to the bathroom.; Podiatry also ordered a surgical shoe.
-- Consult ID
#SOL
- SCr increase from 1.4 to 1.7; with most recent to 1.5
- Could be due to sepsis
- IVF continue
- Avoid nephrotoxic drugs
- Creatine clearance of 52; no need to adjust lovenox and zosyn at this time.
#Insulin-dependent diabetes with diabetic neuropathy
- Hold metformin, continue Januvia and home insulin with sliding scale
- Per patient last A1c 6.8; repeat A1c 6.8
- coding educator input appreciated
- 1 time NovoLog 70/30 15 units today since there is a surgical plan and patient will be n.p.o.
# Hypertension
- Continue to hold losartan
#Anxiety
- Continue citalopram
# History of abdominal aortic aneurysm
- Reported the last measurement was 3.8 cm
# Morbidly obese; BMI of 47
- Encouraged low-carb diet, daily exercise.
DVT prophylaxis: Lovenox
CODE STATUS: Full code
Anticipated Discharge: 24 - 48 hours
Subjective/Interval History
-
Date of Service: May 06, 2025
Seen and examined at bedside. Lying in the bed comfortable. Offers no new complaints
Objective Data
-
Labs:
Laboratory Results
05/06/25
06:29
WBC Pending
Hgb Pending
Hct Pending
Plt Count Pending
Sodium Pending
Potassium Pending
Chloride Pending
Carbon Dioxide Pending
BUN Pending
Creatinine Pending
Glucose Pending
Calcium Pending
Vital Signs:
Vital Signs
Temp Pulse Resp BP Pulse Ox
98.8 F 73 18 144/80 96
05/05/25 23:17 05/05/25 23:17 05/05/25 23:17 05/05/25 23:17 05/05/25 23:17
I&O
05/05/25 05/06/25 05/07/25
06:59 06:59 06:59
Intake Total 1540 / 1540 1400 / 1400
Balance 1540 / 1540 1400 / 1400
Review of Systems
-
History Source: Patient
All other systems: Reviewed and negative (Except as documented)
Physical Exam
-
General: Well Developed, No Apparent Distress and Obese
HEENT: Normocephalic
Respiratory: Clear to Auscultation and Non Labored Respirations
Cardiac: Regular Rhythm and S1/S2
GI: Soft and Nontender
Musculoskeletal: Edema, Right Lower Extrem and Edema, Left Lower Extrem
Skin: Warm, Dry and Other (pulses 2+ to RLE and 1+ to LLE. Left great toe dressing in place. Capillary refill <2 s. )
Neuro: Awake, Alert and Oriented
Psych: Calm
Data Reviewed
-
MRI: Report Reviewed by me, Discussed with Physician, Discussed with Nurse and Discussed with Patient
Labs: Labs Reviewed by me, Discussed with Physician and Discussed with Patient
[2025-05-06 07:40] VITALS: BP 152/85
[2025-05-06 07:58] LABS: Hematocrit 29.6 % (39.0-52.0); Hemoglobin 9.8 g/dL (13.0-18.0); Mean Corp Hgb Conc. 33.1 g/dL (33.0-37.0); Mean Corpuscular Volume 91.4 fL (80.0-94.0); Nucleated Red Blood Cells % 0 % (-); Platelet Count 131 10^3/uL (130-400); Red Cell Dist. Width 15.9 % (11.5-14.5)
[2025-05-06] MEDS: NOVOLOG FLEXPEN-LOW RESISTANCE SC (08:00)
[2025-05-06 08:01] LABS: Glucose - Point of Care 147 mg/dl (70-99)
[2025-05-06] MEDS: SANTYL OINTMENT TOPICAL (08:09)
[2025-05-06] MEDS: JANUVIA 100 MG PO (08:09)
[2025-05-06] MEDS: CELEXA 40 MG PO (08:09)
[2025-05-06 08:47] LABS: Blood Urea Nitrogen 17 mg/dl (9-20); Calcium 9.1 mg/dl (8.4-10.2); Carbon Dioxide 25 mmol/L (22-30); Chloride 108 mmol/L (98-107); Estimated Creatinine Clearance 58 ml/min; Glucose 127 mg/dl (70-99); Potassium 4.1 mmol/L (3.5-5.1); Sodium 138 mmol/L (135-145); eGFR 48.85
[2025-05-06] MEDS: NOVOLOG MIX 70/30 FLEXPEN SC (09:09)
[2025-05-06] MEDS: NOVOLOG MIX 70/30 FLEXPEN 15 UNITS SC (09:36)
[2025-05-06 11:44] LABS: Glucose - Point of Care 196 mg/dl (70-99)
[2025-05-06] MEDS: NOVOLOG FLEXPEN-LOW RESISTANCE 1 UNITS SC ×2 (12:48→18:09)
[2025-05-06 15:30] VITALS: BP 128/67
--- NOTE | 2025-05-06 15:31 | CON.ID ---
Consultation
-
Date/Time Consultation Requested: May 06, 2025 1306
Date/Time Consultation Performed: May 06, 2025 1530
Requesting Provider: Dr. Diaz Juárez
Performing Provider: Dr. Deepa Talley
Reason for Consultation: Foot osteo
Chief Complaint / Past History
Chief Complaint
Great toe redness and swelling
History of Present Illness
74-year-old male with diabetes mellitus, neuropathy who presented to the ER on May 03 due to left first great toe infection. Approximately 2 weeks ago he was vacationing in [place]. He cut his toenails and noted that the entire left great toe
nail came off. No wounds at that time. He was applying antibiotic ointment. Then 3 days ago, he developed a wound at the tip of his great toe. His toe became swollen and red. The wound started draining. No fevers or chills. He was started on
Zosyn. Podiatry debrided the wound at bedside. Arterial duplex normal. However the MRI shows osteomyelitis at the distal phalanx next to the wound. He will be taking to the OR tonight. He reports his diabetes is under control. No complaints.
Past History
Additional Past Medical History:
Diabetes mellitus
Neuropathy
Hypertension
Anxiety/depression
AAA
Class III obesity BMI 47
Allergy History:
codeine Allergy (Verified 05/03/25 12:57)
'I get crazy'
NOT.TGUXIYTVP71 - Not Converted 38. See Text. Allergy (Uncoded 05/03/25 12:57)
Unknown
NOT.QEBULPIAK10 - Not Converted 65. See Text. Allergy (Uncoded 05/03/25 12:57)
Unknown
Medications Reviewed: Yes
Current Antibiotics:
Zosyn d4
Social History
Tobacco: Non-Smoker
Alcohol: None
Drug: None
Personal:
Family History
Family History: Not Pertinent
Review of Systems
Review of Systems
General: Negative Fever, Chills or Change in Appetite
HEENT: Negative Sinus Problems or Headache
Cardiovascular: Negative Chest Pain or Dyspnea
Respiratory: Negative Dyspnea or Cough
Gasteroenterology: Negative Nausea, Vomiting or Diarrhea
Genital / Urological: Negative Dysuria or Flank Pain
Endocrine: Negative Weakness
All systems: All other systems were reviewed and were negative
Vital Signs
Temp Pulse Resp BP Pulse Ox
98.2 F 82 16 152/85 95
05/06/25 07:40 05/06/25 07:40 05/06/25 07:40 05/06/25 07:40 05/06/25 07:40
Physical Exam
Physical Exam
Constitutional: No Acute Distress and Obese
Eyes: No Conjunctival Hemorrhage and Sclera Anicteric
Cardiovascular: Regular Rate and S1/S2
Pulmonary: Clear
Gastrointestinal: Soft, Non Tender, Non Distended and Normal Bowel Sounds
Extremities: Negative Edema
Wound: Other (Left left hallux, edematous, erythematous, at toe tuft positive deep wound, light yellow slough)
Lab / Diagnostic Study Results
05/06/25 06:29
05/06/25 06:29
Abs Immat Gran (auto) 0.1 10^3/uL (0-0.05) H 05/06/25 06:29
Absolute Neuts (auto) 4.7 10^3/uL (1.4-6.5) 05/06/25 06:29
Absolute Lymphs (auto) 1.1 10^3/uL (1.2-3.4) L 05/06/25 06:29
Absolute Monos (auto) 0.7 10^3/uL (0.1-0.6) H 05/06/25 06:29
Absolute Basos (auto) 0.0 10^3/uL (0-0.2) 05/06/25 06:29
Immature Gran % 0.9 % (0-0.5) H 05/06/25 06:29
Neutrophils % 69.2 % (42.2-75.2) 05/06/25 06:29
Lymphocytes % 16.4 % (20.5-51.1) L 05/06/25 06:
Monocytes % 10.4 % (1.7-9.3) H 05/06/25 06:29
Eosinophils % 2.5 % (0-6) 05/06/25:
Basophils % 0.6 % (0-2) 05/06/25 06:
ESR 97 mm/hour (0-20) H 05/06/25 06:29
C-Reactive Protein 15.40 mg/L (0.0-10.00) H 05/04/25 06:22
Microbiology Results
Micro:
05/03/25 14:54 Blood Culture - Preliminary
Blood/Venous No Growth in 72 hours- Final report to follow
05/03/25 14:54 Blood Culture - Preliminary
Blood/Venous No Growth in 72 hours- Final report to follow
05/03/25 18:39 MRSA Screen - Final
Nose No Methicillin Resistant Staphylococcus aureus isolated.
05/05/25 MRI LLE: Acute osteomyelitis of the first distal phalanx adjacent to the distal first toe soft tissue wound
Assessment / Plan
# Acute osteomyelitis of the left great toe
# Purulent cellulitis of the left great toe
# Diabetes mellitus with neuropathy
- Agree with partial toe amputation to achieve surgical cure.
- Continue Zosyn.
- Post-op, can transition to short course po abx for soft tissue coverage.
[2025-05-06 17:49] LABS: Glucose - Point of Care 171 mg/dl (70-99)
[2025-05-06] MEDS: LOVENOX 40 MG SC (18:14)
[2025-05-06] MEDS: TYLENOL 650 MG PO (21:05)
[2025-05-06] MEDS: NOVOLOG MIX 70/30 FLEXPEN 30 UNITS SC (21:06)
[2025-05-06] MEDS: ATIVAN 1 MG PO (21:06)
[2025-05-06 21:07] LABS: Glucose - Point of Care 242 mg/dl (70-99)
[2025-05-06 23:08] VITALS: BP 108/51
[2025-05-07] VITALS (12 sets, daily range): BP systolic 94–145; BP diastolic 52–86
[2025-05-07 00:34] LABS: Glucose - Point of Care 171 mg/dl (70-99)
[2025-05-07] MEDS: ZOSYN 100 IV ×4 (05:42→23:24)
[2025-05-07 06:04] LABS: Glucose - Point of Care 150 mg/dl (70-99)
[2025-05-07] MEDS: NOVOLOG MIX 70/30 FLEXPEN SC (07:12)
[2025-05-07] MEDS: NOVOLOG FLEXPEN-LOW RESISTANCE SC ×3 (07:52→17:11)
[2025-05-07] MEDS: NOVOLOG MIX 70/30 FLEXPEN 10 UNITS SC (07:53)
[2025-05-07] MEDS: CELEXA 40 MG PO (07:53)
[2025-05-07] MEDS: JANUVIA 100 MG PO (07:53)
[2025-05-07 08:01] LABS: Hematocrit 28.9 % (39.0-52.0); Hemoglobin 9.5 g/dL (13.0-18.0); Mean Corp Hgb Conc. 32.9 g/dL (33.0-37.0); Mean Corpuscular Volume 92.0 fL (80.0-94.0); Platelet Count 139 10^3/uL (130-400); Red Cell Dist. Width 16.1 % (11.5-14.5)
--- NOTE | 2025-05-07 08:06 | W.PN.HOSP.TC ---
Addendum entered and electronically signed by Osiel Feng MD 05/07/25 22:02:
Attending Addendum-
I saw and evaluated the patient. I reviewed the resident�s note and agree with findings and plan as documented in the resident�s note. Sub: seen post op complains of mild left great toe pain. Denies fevers chills. 'Im definitely not going to rehab!'
Seen with present on the phone during interview. Full 12 point ROS reviewed and negative except as documented Exam: Vitals reviewed in chart GEN-NAd heart RRR no MRG lungs clear abd soft obese LE- LLE bandaged no pain to palpation no edema b/l
pulses +2 DP
Plan:
# Sepsis secondary to diabetic left great toe osteomyelitis with surrounding cellulitis
-Left Foot MRI 05/05-Acute osteomyelitis of the first distal phalanx adjacent to the distal first toe soft tissue wound
-cont Zosyn day #5 ->Augmentin x 7 days on DC
-blood cultures NGTD
-CARLOS b/l WNL
-05/04- pods bedside excisional debridement of nonviable and hypergranular skin and SQ tissue about the left great toe wound, to a healthy bleeding base
-05/07-Partial hallux amputation, left - POD#0 - specimens sent for cx and path
-NWB x 24 hours post OP
-appreciate ID input
-CTM closely
#SOL on CKD (probable)
- improving, avoid NT agents
- hold losartan
- cont IVF
- BMP in am
#Insulin-dependent diabetes with diabetic neuropathy
- Hold metformin, continue Januvia and restart insulin 70/30 30BID (home dose) with sliding scale (1/2 dose when NPO)
# Hypertension
- hold losartan
#Anxiety
- Continue citalopram
# History of abdominal aortic aneurysm
- Reported the last measurement was 3.8 cm
# Morbidly obese; BMI of 47
- Encouraged low-carb diet, daily exercise.
DVT prophylaxis: Lovenox
CODE STATUS: Full code
Dispo DC home in 48 hours
Time spent coordinating care, review of plan of care with resident, personally reviewed records in EMR, med rec, consults, notes, labs, radiology, d/w nursing, present � 53 mins
Original Note:
Today's Communication/Plan
-
N.p.o. for surgical debridement today
Continue Zosyn for now
PT OT eval for dispo
Wound care follow postop
Assessment / Plan
Assessment / Plan
74-year-old male with history of insulin requiring diabetes presenting in the emergency department with complaints of left foot pain, swelling and redness.
# Sepsis secondary to diabetic left foot infection ; nonpurulent cellulitis
# Onychomycosis with possible secondary bacterial infection
-Osteomyelitis. MRI: Acute osteomyelitis of the first distal phalanx adjacent to the distal first toe soft tissue wound.
-Maintain Zosyn day 5
-Awaiting blood cultures NGTD
-Foot x-ray without any acute abnormalities
-Normal CARLOS b/l
-Tylenol for pain
-ESR 75-->82-->93-->97
-CRP 12.6---> 15.4
--s/p 8/10 Bedside excisional debridement of nonviable and hypergranular skin and SQ tissue about the left great toe wound, to a healthy bleeding base
-- Advised to avoid pressure on the foot except going to the bathroom.; Podiatry also ordered a surgical shoe.
-Podiatry and wound following; surgical debridement planned for today(partial toe imitation to achieve surgical cure)
- ID input appreciated.; Transition to short course p.o. antibiotic for soft tissue coverage postop.
#SOL
- SCr improving; 1.4 today
- Could be due to sepsis
- maintain IVF continue
- Avoid nephrotoxic drugs
- Creatine clearance of 52; no need to adjust lovenox and zosyn at this time.
#Insulin-dependent diabetes with diabetic neuropathy
- Hold metformin, continue Januvia at 100mg and home insulin with sliding scale
- Per patient last A1c 6.8; repeat A1c 6.8
- tobacco prevention health educator input appreciated
- 1 time NovoLog 70/30 10 units today since there is a surgical plan and patient will be n.p.o.
# Hypertension
- Continue to hold losartan
- stable
#Anxiety
- Continue citalopram
# History of abdominal aortic aneurysm
- Reported the last measurement was 3.8 cm
# Morbidly obese; BMI of 47
- Encouraged low-carb diet, daily exercise.
DVT prophylaxis: Lovenox
CODE STATUS: Full code
Anticipated Discharge: 24 - 48 hours
Subjective/Interval History
-
Date of Service: May 07, 2025
Seen and examined at bedside. Patient lying comfortable in the bed. Offers no new complaints. AFVSS
Objective Data
-
Labs:
Laboratory Results
05/07/25
06:58
WBC 6.3
Hgb 9.5 L
Hct 28.9 L
Plt Count 139
Sodium Pending
Potassium Pending
Chloride Pending
Carbon Dioxide Pending
BUN Pending
Creatinine Pending
Glucose Pending
Calcium Pending
Vital Signs:
Vital Signs
Temp Pulse Resp BP Pulse Ox
98.1 F 74 22 108/51 96
05/06/25 23:08 05/06/25 23:08 05/06/25 23:08 05/06/25 23:08 05/06/25 23:08
I&O
05/06/25 05/07/25 05/08/25
06:59 06:59 06:59
Intake Total 1400 / 1400 660 / 660
Balance 1400 / 1400 660 / 660
Review of Systems
-
History Source: Patient
All other systems: Reviewed and negative (Except as documented)
Physical Exam
-
General: Well Developed, No Apparent Distress and Obese
HEENT: Normocephalic
Respiratory: Clear to Auscultation and Non Labored Respirations
Cardiac: Regular Rhythm and S1/S2
GI: Soft and Nontender
Musculoskeletal: Edema, Right Lower Extrem and Edema, Left Lower Extrem
Skin: Warm, Dry and Other (pulses 2+ to RLE and 1+ to LLE. Left great toe dressing in place. Capillary refill <2 s. )
Neuro: Awake, Alert and Oriented
Psych: Calm
Data Reviewed
-
Labs: Labs Reviewed by me, Discussed with Physician and Discussed with Patient
[2025-05-07 08:22] LABS: Blood Urea Nitrogen 14 mg/dl (9-20); Calcium 9.1 mg/dl (8.4-10.2); Carbon Dioxide 24 mmol/L (22-30); Chloride 110 mmol/L (98-107); Estimated Creatinine Clearance 63 ml/min; Glucose 126 mg/dl (70-99); Potassium 4.2 mmol/L (3.5-5.1); Sodium 138 mmol/L (135-145); eGFR 53.07
[2025-05-07] MEDS: SANTYL OINTMENT TOPICAL (09:46)
--- NOTE | 2025-05-07 11:36 | W.PN.UPDATE ---
Update Note
Progress Note Update
PRE-OP
Planned procedure: Partial hallux amputation, left.
Discussed with patient the need to remove infected skin, soft tissue and bone of the left great toe, as well as the risks, benefits and possible complications of the procedure, including the possible need for further surgery. All of the patient's
questions were answered to his full satisfaction and understanding. Surgical consent obtained at bedside.
[2025-05-07 11:38] LABS: Glucose - Point of Care 131 mg/dl (70-99)
--- NOTE | 2025-05-07 11:41 | W.PN.UPDATE ---
Update Note
Progress Note Update
POST OP:
Procedure: Partial hallux amputation, left.
Prognosis: Good
EBL: less than 2cc.
Orders;
XRAYS left foot
NWB for 24 hours.
Resume Diet.
[2025-05-07 12:28] LABS: Glucose - Point of Care 131 mg/dl (70-99)
--- NOTE | 2025-05-07 12:50 | W.PN.ID1 ---
Date of Service
Date of Service: May 07, 2025
Today's Communication
See below.
Assessment / Plan
# Acute osteomyelitis of the left great toe
# Purulent cellulitis of the left great toe
# Diabetes mellitus with neuropathy
- 05/07 s/p partial toe amputation -> should achieve surgical cure.
- Continue Zosyn.
- At time of dc, transition to Augmentin 875mg po bid x 7 days for soft tissue coverage.
# Additional Past Medical History:
Diabetes mellitus
Neuropathy
Hypertension
Anxiety/depression
AAA
Class III obesity BMI 47
Chief Complaint
-: Cellulitis
Subjective / Review of Systems
Came back from OR. no pain.
Vital Signs / Physical Exam
Vital Signs
Vital Signs
Temp Pulse Resp BP Pulse Ox
98.0 F 68 20 131/73 95
05/07/25 12:30 05/07/25 12:30 05/07/25 12:30 05/07/25 12:30 05/07/25 12:30
Physical Exam
Constitutional: No Acute Distress and Obese
Cardiovascular: Regular Rate and S1/S2
Pulmonary: Clear
Gastrointestinal: Soft, Non Tender, Non Distended and Normal Bowel Sounds
Extremities: Negative Edema
Wound: Other (left foot post-op dressing dry)
Neurological: AO x 3
Objective Data
Lab Data
Lab Results
05/07/25 06:58
05/07/25 06:58
ESR 97 mm/hour (0-20) H 05/06/25 06:29
Estimated Creat Clear 63 ml/min 05/07/25 06:58
Total Bilirubin 0.9 mg/dl (0.2-1.3) 05/04/25 06:22
AST 41 U/L (17-59) 05/04/25 06:22
ALT 27 U/L (0-50) 05/04/25 06:22
Alkaline Phosphatase 54 U/L (38-126) 05/04/25 06:22
C-Reactive Protein 15.40 mg/L (0.0-10.00) H 05/04/25 06:22
Most recent labs reviewed.
Micro Results:
05/07/25 10:51 Tissue Culture - Pending
Toe Gram Stain - Pending
05/07/25 10:51 Anaerobic Culture - Pending
Toe
05/03/25 14:54 Blood Culture - Preliminary
Blood/Venous No Growth in 72 hours- Final report to follow
05/03/25 14:54 Blood Culture - Preliminary
Blood/Venous No Growth in 72 hours- Final report to follow
05/03/25 18:39 MRSA Screen - Final
Nose No Methicillin Resistant Staphylococcus aureus isolated.
05/05/25 MRI LLE: Acute osteomyelitis of the first distal phalanx adjacent to the distal first toe soft tissue wound
--- NOTE | 2025-05-07 13:33 | PTCARENOTE ---
Xray called for patient to come down for scan. Patient refused to go until after he eats lunch. Xray department notified.
[2025-05-07] MEDS: NSS IV (15:35)
--- NOTE | 2025-05-07 15:35 | PTCARENOTE ---
Per podiatry, nursing to no longer perform dressing changes to R toe post op. Podiatry will change only. Made resident and podiatry aware wound care orders are still standing and need to be discontinued.
[2025-05-07] MEDS: DILAUDID 0.5 MG IV ×2 (16:17→21:27)
[2025-05-07] MEDS: LOVENOX 40 MG SC (17:05)
[2025-05-07 17:15] LABS: Glucose - Point of Care 137 mg/dl (70-99)
[2025-05-07] MEDS: TYLENOL 650 MG PO (19:53)
[2025-05-07 21:23] LABS: Glucose - Point of Care 331 mg/dl (70-99)
[2025-05-07] MEDS: NOVOLOG MIX 70/30 FLEXPEN 30 UNITS SC (21:27)
[2025-05-08] MEDS: DILAUDID 0.5 MG IV ×3 (02:13→15:58)
[2025-05-08 03:43] VITALS: BP 120/62
[2025-05-08] MEDS: ZOSYN 100 IV (06:13)
--- NOTE | 2025-05-08 07:14 | W.PN.HOSP.TC ---
Addendum entered and electronically signed by Osiel Feng MD 05/08/25 20:47:
Attending Addendum-
I saw and evaluated the patient. I reviewed the resident�s note and agree with findings and plan as documented in the resident�s note. Sub: complains of mild left great toe pain. Denies fevers chills. Seen with present. No fevers chills rash
diarrhea. Full 12 point ROS reviewed and negative except as documented Exam: Vitals reviewed in chart GEN-NAD heart RRR no MRG lungs clear abd soft obese LE- LLE bandaged no pain to palpation no edema b/l pulses +2 DP
Plan:
# Sepsis secondary to diabetic left great toe osteomyelitis with surrounding cellulitis
-Left Foot MRI 05/05-Acute osteomyelitis of the first distal phalanx adjacent to the distal first toe soft tissue wound
-Zosyn day #6 ->Augmentin x 7 days today 05/08
-blood cultures NGTD
-CARLOS b/l WNL
-05/04- pods bedside excisional debridement of nonviable and hypergranular skin and SQ tissue about the left great toe wound, to a healthy bleeding base
-05/07-Partial hallux amputation, left - POD#1 - specimens sent for cx- pos staph aureus , path-clean margins
-NWB x 24 hours->may walk to bathroom-PT OT pending
-appreciate ID and pods input
-CTM closely
#SOL on CKD (probable)
- improving, avoid NT agents
- stable
- hold losartan restart on DC
- DC IVF
- BMP in am
#Insulin-dependent diabetes with diabetic neuropathy
- Hold metformin, continue Januvia and insulin 70/30 30BID (home dose) with sliding scale
# Hypertension
- hold losartan
#Anxiety
- Continue citalopram
# History of abdominal aortic aneurysm
- Reported the last measurement was 3.8 cm
# Morbidly obese; BMI of 47
- Encouraged low-carb diet, daily exercise.
DVT prophylaxis: Lovenox
CODE STATUS: Full code
Dispo DC home in AM
Time spent coordinating care, review of plan of care with resident, personally reviewed records in EMR, med rec, consults, notes, labs, radiology, d/w nursing, present � 51 mins
Original Note:
Today's Communication/Plan
-
switch to po antibiotics
Continue wound care per podiatry
PT OT assessment pending
follow on path and culture
Assessment / Plan
Assessment / Plan
74-year-old male with history of insulin requiring diabetes presenting in the emergency department with complaints of left foot pain, swelling and redness.
# Sepsis secondary to diabetic left foot infection ; nonpurulent cellulitis
# Onychomycosis with possible secondary bacterial infection
-Osteomyelitis. MRI: Acute osteomyelitis of the first distal phalanx adjacent to the distal first toe soft tissue wound.
-d/c Zosyn day 6; transition to Augmentin 875mg po bid x 7 days for soft tissue coverage per ID
-Awaiting blood cultures NGTD
-Foot x-ray without any acute abnormalities
-Normal CARLOS b/l
-Tylenol for pain
-ESR 75-->82-->93-->97
-CRP 12.6---> 15.4
--s/p 05/04 Bedside excisional debridement of nonviable and hypergranular skin and SQ tissue about the left great toe wound, to a healthy bleeding base
--Advised to avoid pressure on the foot except going to the bathroom.; Podiatry also ordered a surgical shoe.
- Podiatry and wound following; s/p Partial hallux amputation, left 05/07/24; awaiting additional recs
- path and culture pending
#SOL on possible CKD
- SCr improving. stable at 1.4
- Could be due to sepsis
- D/c IVF continue
- Avoid nephrotoxic drugs
- Creatine clearance of 52; no need to adjust lovenox and zosyn at this time.
#Insulin-dependent diabetes with diabetic neuropathy
- Hold metformin, continue Januvia at 100mg and home insulin with sliding scale
- Per patient last A1c 6.8; repeat A1c 6.8
- peer educator input appreciated
# Hypertension
- Continue to hold losartan
- stable
#Anxiety
- Continue citalopram
# History of abdominal aortic aneurysm
- Reported the last measurement was 3.8 cm
# Morbidly obese; BMI of 47
- Encouraged low-carb diet, daily exercise.
DVT prophylaxis: Lovenox
CODE STATUS: Full code
Anticipated Discharge: Within 24 hours
Subjective/Interval History
-
Date of Service: May 08, 2025
Seen and examined at bedside. AFVSS. Reports that he had increased pain in the left foot last night which required Dilaudid and he was able to sleep after that.
Objective Data
-
Labs:
Laboratory Results
05/08/25
07:13
WBC Pending
Hgb Pending
Hct Pending
Plt Count Pending
Sodium Pending
Potassium Pending
Chloride Pending
Carbon Dioxide Pending
BUN Pending
Creatinine Pending
Glucose Pending
Calcium Pending
Vital Signs:
Vital Signs
Temp Pulse Resp BP Pulse Ox
98.2 F 76 18 120/62 96
05/08/25 03:43 05/08/25 03:43 05/08/25 03:43 05/08/25 03:43 05/08/25 03:43
I&O
05/07/25 05/08/25 05/09/25
06:59 06:59 06:59
Intake Total 660 / 660 630 / 630
Balance 660 / 660 630 / 630
Review of Systems
-
History Source: Patient
All other systems: Reviewed and negative (Except as documented)
Physical Exam
-
General: Well Developed, No Apparent Distress and Obese
HEENT: Normocephalic
Respiratory: Clear to Auscultation and Non Labored Respirations
Cardiac: Regular Rhythm and S1/S2
GI: Soft and Nontender
Musculoskeletal: Edema, Right Lower Extrem and Edema, Left Lower Extrem
Skin: Warm, Dry and Other (pulses 2+ to RLE and 1+ to LLE. Left great toe dressing in place.)
Neuro: Awake, Alert and Oriented
Psych: Calm
Data Reviewed
-
Labs: Labs Reviewed by me, Discussed with Physician and Discussed with Family
[2025-05-08 07:30] VITALS: BP 111/57
[2025-05-08 08:26] LABS: Hematocrit 28.6 % (39.0-52.0); Hemoglobin 9.4 g/dL (13.0-18.0); Mean Corp Hgb Conc. 32.9 g/dL (33.0-37.0); Mean Corpuscular Volume 92.9 fL (80.0-94.0); Platelet Count 128 10^3/uL (130-400); Red Cell Dist. Width 16.2 % (11.5-14.5)
[2025-05-08 08:47] LABS: Glucose - Point of Care 129 mg/dl (70-99)
[2025-05-08] MEDS: NOVOLOG FLEXPEN-LOW RESISTANCE SC (08:54)
[2025-05-08 09:08] LABS: Blood Urea Nitrogen 14 mg/dl (9-20); Calcium 8.9 mg/dl (8.4-10.2); Carbon Dioxide 24 mmol/L (22-30); Chloride 109 mmol/L (98-107); Estimated Creatinine Clearance 63 ml/min; Glucose 112 mg/dl (70-99); Potassium 4.3 mmol/L (3.5-5.1); Sodium 138 mmol/L (135-145); eGFR 53.07
[2025-05-08] MEDS: CELEXA 40 MG PO (09:37)
[2025-05-08] MEDS: JANUVIA 100 MG PO (09:37)
[2025-05-08] MEDS: NOVOLOG MIX 70/30 FLEXPEN 30 UNITS SC ×2 (09:38→21:09)
[2025-05-08] MEDS: SANTYL OINTMENT 1 APPLIC TOPICAL (09:41)
--- NOTE | 2025-05-08 10:25 | W.PN.ID1 ---
Date of Service
Date of Service: May 08, 2025
Today's Communication
-Transition to Augmentin 875mg po bid x 7 more days for soft tissue coverage.
Assessment / Plan
# Acute osteomyelitis of the left great toe
# Purulent cellulitis of the left great toe
# Diabetes mellitus with neuropathy
- 05/07 s/p partial toe amputation -> should achieve surgical cure.
- DC Zosyn (d5)
-Transition to Augmentin 875mg po bid x 7 more days for soft tissue coverage.
# Additional Past Medical History:
Diabetes mellitus
Neuropathy
Hypertension
Anxiety/depression
AAA
Class III obesity BMI 47
Chief Complaint
-: Cellulitis
Subjective / Review of Systems
No complaints.
Vital Signs / Physical Exam
Vital Signs
Vital Signs
Temp Pulse Resp BP Pulse Ox
98.3 F 78 20 111/57 94
05/08/25 07:30 05/08/25 07:30 05/08/25 07:30 05/08/25 07:30 05/08/25 07:30
Physical Exam
Constitutional: No Acute Distress
Pulmonary: Clear
Gastrointestinal: Soft, Non Tender and Non Distended
Wound: Other (Left foot dressing dry)
Neurological: AO x 3
Objective Data
Lab Data
Lab Results
05/08/25 07:13
05/08/25 07:13
ESR 97 mm/hour (0-20) H 05/06/25 06:29
Estimated Creat Clear 63 ml/min 05/08/25 07:13
Total Bilirubin 0.9 mg/dl (0.2-1.3) 05/04/25 06:22
AST 41 U/L (17-59) 05/04/25 06:22
ALT 27 U/L (0-50) 05/04/25 06:22
Alkaline Phosphatase 54 U/L (38-126) 05/04/25 06:22
C-Reactive Protein 15.40 mg/L (0.0-10.00) H 05/04/25 06:22
Most recent labs reviewed.
Micro Results:
05/03/25 14:54 Blood Culture - Preliminary
Blood/Venous No Growth in 4 days- Final report to follow
05/03/25 14:54 Blood Culture - Preliminary
Blood/Venous No Growth in 4 days- Final report to follow
05/07/25 10:51 Tissue Culture - Pending
Toe Gram Stain - Preliminary
05/07/25 10:51 Anaerobic Culture - Pending
Toe
05/03/25 18:39 MRSA Screen - Final
Nose No Methicillin Resistant Staphylococcus aureus isolated.
05/05/25 MRI LLE: Acute osteomyelitis of the first distal phalanx adjacent to the distal first toe soft tissue wound
[2025-05-08] MEDS: AUGMENTIN 875 MG/125 MG 1 TABLET PO ×2 (11:29→20:23)
[2025-05-08 11:53] VITALS: BP 127/63
[2025-05-08 12:21] VITALS: BMI 48.1
[2025-05-08 12:55] LABS: Glucose - Point of Care 166 mg/dl (70-99)
[2025-05-08] MEDS: NOVOLOG FLEXPEN-LOW RESISTANCE 1 UNITS SC ×2 (13:01→17:23)
--- NOTE | 2025-05-08 14:30 | CM ---
PT/OT signed off on patient as he is functionally at baseline. Will need to determine if he has any ongoing Antibiotic needs or wound care.
Plan: Case management will continue to follow and assist with discharge planning. Home when stable, will watch for IV ABX needs or VN for wound care.
[2025-05-08 15:45] VITALS: BP 107/46
[2025-05-08] MEDS: TYLENOL 650 MG PO (15:58)
[2025-05-08] MEDS: LOVENOX 40 MG SC (17:23)
[2025-05-08 17:28] LABS: Glucose - Point of Care 178 mg/dl (70-99)
--- NOTE | 2025-05-08 18:04 | W.PN.POD ---
Today's Communication
Today's Communication
Surgical site stable and viable, left foot. Anticipate surgical cure.
Begin discharge planning. Monitor PO fever. Will see in AM.
Assessment / Plan
-
Assessment:
Diabetic foot infection, with osteomyelitis of the distal phalanx, left great toe.
S/P one day partial hallux amputation, left foot.
No radiographic evidence of osteomyelitis. MRI evidence of osteomyelitis of the distal tuft of the hallux distal phalanx, left.
IDDM with diabetic neuropathy
HTN
H/O AAA
Plan:
Surgical site stable and viable, left foot. Anticipate surgical cure.
ID note appreciated. Transition to Augmentin 875mg po bid x 7 more days
Adaptic, dry gauze dressing applied..
Patient advised to stay off the foot except for going from bed to bathroom.
Surgical shoe ordered (DARCO wedge)
Anticipate discharge planning.
Monitor PO fever. Will see in AM.
Subjective
Chief Complaint
S/P one day partial hallux amputation, left foot.
Subjective
Patient resting comfortably in bed. Throbbing pain in foot earlier in the day, well controlled by PO analgesics.
[place] feverish earlier, less so now. No chills or sweats.
Objective
05/05/25: Arterial U/S, LE:
1. Normal ankle brachial indices on each side. Normal toe brachial indices.
2. Minimal arterial plaque, without focal significant arterial stenosis demonstrated on either side.
3. Normal spectral Doppler waveform analysis of each lower extremity.
Left Lower Extremity:
Left Brachial pressure: 139 mmHg
Left DPA: 131 mmHg
Left CONTRACTS LAW PROFESSOR: 148 mmHg
Left CARLOS: DPA 0.94 CONTRACTS LAW PROFESSOR 1.06,
Left TBI: 1.04
05/05/25: MRI left foot
My personal review of images reveals hypointense signal of the hallux distal phalanx on STIR views consistent with osteomyelitis, without clear hypertense signal on T1.
Will defer to radiology report.
Temp Pulse Resp BP Pulse Ox
101.6 F H 78 20 107/46 95
05/08/25 15:45 05/08/25 15:45 05/08/25 15:45 05/08/25 15:45 05/08/25 15:45
05/08/25 07:13
05/08/25 07:13
05/07/25 Post-Op XRAYS, LEFT FOOT: Interval resection of distal left first toe. Mild soft tissue edema involving the left first toe as well as within the dorsum of the distal foot. No other acute radiographic abnormalities.
Vital Signs and Lab results were reviewed.
Temp 101.6, WBC 7.7
05/08/25Intra-Op Bone culture preliminary: Staph Aureus. Intra-Op Path report: Focal, acute osteomyelitis
Left foot:
Dressing with mild blood staining distally. Otherwise dry and intact.
Left hallux with moderate edema and ecchymosis related to surgery. Wound edges well apposed, sutures intact.
No active discharge or bleeding from wound. No malodor. No lymphangitis/cellulitis.
[2025-05-08 20:19] LABS: Glucose - Point of Care 216 mg/dl (70-99)
[2025-05-08] MEDS: ATIVAN 1 MG PO (20:27)
[2025-05-08 23:33] VITALS: BP 110/57
[2025-05-09] MEDS: TYLENOL 650 MG PO (01:51)
--- NOTE | 2025-05-09 07:10 | W.PN.HOSP.TC ---
Addendum entered and electronically signed by Osiel Feng MD 05/09/25 21:17:
Attending Addendum-
I saw and evaluated the patient. I reviewed the resident�s note and agree with findings and plan as documented in the resident�s note. Sub: 'I dont need PT Im doing great im going home' had single fever yesterday non since. Denies chills resp GI
or urinary sxs. . No fevers chills rash diarrhea. Full 12 point ROS reviewed and negative except as documented Exam: Vitals reviewed in chart GEN-NAD heart RRR no MRG lungs clear abd soft obese LE- LLE bandaged no pain to palpation no edema b/l
pulses +2 DP
Plan:
# Sepsis secondary to diabetic left great toe osteomyelitis with surrounding cellulitis
-Left Foot MRI 05/05-Acute osteomyelitis of the first distal phalanx adjacent to the distal first toe soft tissue wound
-Zosyn->Augmentin x 7 total days starting 05/08
-blood cultures NGTD
-CARLOS b/l WNL
-05/04- pods bedside excisional debridement of nonviable and hypergranular skin and SQ tissue about the left great toe wound, to a healthy bleeding base
-05/07-Partial hallux amputation, left - POD#1 - specimens sent for cx- pos MSSA-sensi resulted sens to Augmentin, path-clean margins
-was NWB x 24 hours post OP->may walk with surgical shoe
-appreciate ID and pods input
#SOL on CKD (probable)
- resolved
- held losartan restart on DC
#Insulin-dependent diabetes with diabetic neuropathy
- Hold metformin restart on DC, continue Januvia and insulin 70/30 30BID (home dose) with sliding scale
# Hypertension
- hold losartan
#Anxiety
- Continue citalopram
# History of abdominal aortic aneurysm
- Reported the last measurement was 3.8 cm
# Morbidly obese; BMI of 47
- Encouraged low-carb diet, daily exercise.
DVT prophylaxis: Lovenox
CODE STATUS: Full code
Dispo DC home with VN
Time spent coordinating care, DC planning, review of DC plan of care with resident, transition of care, review of records, med rec/scripts sent electronically, consults, notes, d/w consultants, nursing, family, and CM� 31 mins >50% of this time was
devoted to counseling and coordination of care
Original Note:
Today's Communication/Plan
-
Discharge home with home care.
Continue Augmentin to complete course for 7 days
Dressings to be kept clean, dry and intact until seen in office with podiatry on 05/13/2025.
Weight bearing left foot in wedged Darco shoe only
Assessment / Plan
Assessment / Plan
74-year-old male with history of insulin requiring diabetes presenting in the emergency department with complaints of left foot pain, swelling and redness.
# Sepsis secondary to diabetic left foot infection ; nonpurulent cellulitis
# Onychomycosis with possible secondary bacterial infection
-Osteomyelitis. MRI: Acute osteomyelitis of the first distal phalanx adjacent to the distal first toe soft tissue wound.
- Completed 6 days of Zosyn; Augmentin 875mg po bid x 7 days for soft tissue coverage per ID(day 2); will send the remaining prescription upon discharge
- Blood culture remain negative
-Foot x-ray without any acute abnormalities
-Normal CARLOS b/l
-Tylenol for pain; IV Dilaudid for severe pain
-ESR and CRP were elevated
-S/p 8/10 Bedside excisional debridement of nonviable and hypergranular skin and SQ tissue about the left great toe wound, to a healthy bleeding base
--Advised to avoid pressure on the foot except going to the bathroom.; Podiatry also ordered a surgical shoe.
- Podiatry and wound following; s/p Partial hallux amputation, left 05/07/24; POD#2
- Tissue culture positive for Staph aureus: Anaerobic culture pending
- Path with focal acute osteomyelitis in the amputated part with clear margins
#SOL on possible CKD
- Resolved
- Could be due to sepsis
- D/c IVF continue
- Avoid nephrotoxic drugs
- Creatine clearance of 52; no need to adjust lovenox and zosyn at this time.
#Insulin-dependent diabetes with diabetic neuropathy
- Hold metformin, continue Januvia at 100mg and home insulin with sliding scale
- Per patient last A1c 6.8; repeat A1c 6.8
- nurse informatics educator input appreciated
# Hypertension
- Continue to hold losartan
- stable
#Anxiety
- Continue citalopram
# History of abdominal aortic aneurysm
- Reported the last measurement was 3.8 cm
# Morbidly obese; BMI of 47
- Encouraged low-carb diet, daily exercise.
DVT prophylaxis: Lovenox
CODE STATUS: Full code
Anticipated Discharge: Today
Subjective/Interval History
-
Date of Service: May 09, 2025
Seen and examined at bedside. Reports that he has minimal pain. Offers no new complaints. Had 1 documented fever of 101.6 yesterday evening. Currently AFVSS.
Objective Data
-
Labs:
Laboratory Results
05/09/25
07:07
WBC Pending
Hgb Pending
Hct Pending
Plt Count Pending
Sodium Pending
Potassium Pending
Chloride Pending
Carbon Dioxide Pending
BUN Pending
Creatinine Pending
Glucose Pending
Calcium Pending
Vital Signs:
Vital Signs
Temp Pulse Resp BP Pulse Ox
98.6 F 79 18 110/57 97
05/09/25 04:23 05/08/25 23:33 05/08/25 23:33 05/08/25 23:33 05/08/25 23:33
I&O
05/08/25 05/09/25 05/10/25
06:59 06:59 06:59
Intake Total 630 / 630 2480 / 2480
Balance 630 / 630 2480 / 2480
Review of Systems
-
History Source: Patient
All other systems: Reviewed and negative (Except as documented)
Physical Exam
-
General: Well Developed, No Apparent Distress and Obese
HEENT: Normocephalic
Respiratory: Clear to Auscultation and Non Labored Respirations
Cardiac: Regular Rhythm and S1/S2
GI: Soft and Nontender
Musculoskeletal: Edema, Right Lower Extrem and Edema, Left Lower Extrem
Skin: Warm, Dry and Other (pulses 2+ to RLE and 1+ to LLE. Left great toe dressing in place.)
Neuro: Awake, Alert and Oriented
Psych: Calm
Data Reviewed
-
Labs: Labs Reviewed by me, Discussed with Physician and Discussed with Patient
[2025-05-09 07:55] VITALS: BP 141/69
[2025-05-09 08:06] LABS: Glucose - Point of Care 157 mg/dl (70-99)
[2025-05-09] MEDS: NOVOLOG FLEXPEN-LOW RESISTANCE 1 UNITS SC ×2 (09:06→12:29)
[2025-05-09] MEDS: NOVOLOG MIX 70/30 FLEXPEN 30 UNITS SC (09:06)
[2025-05-09] MEDS: JANUVIA 100 MG PO (09:06)
[2025-05-09] MEDS: CELEXA 40 MG PO (09:06)
[2025-05-09] MEDS: AUGMENTIN 875 MG/125 MG 1 TABLET PO (09:06)
[2025-05-09] MEDS: SANTYL OINTMENT 1 APPLIC TOPICAL (09:07)
[2025-05-09 09:40] LABS: Hematocrit 31.4 % (39.0-52.0); Hemoglobin 10.5 g/dL (13.0-18.0); Mean Corp Hgb Conc. 33.4 g/dL (33.0-37.0); Mean Corpuscular Volume 91.5 fL (80.0-94.0); Platelet Count 164 10^3/uL (130-400); Red Cell Dist. Width 16.2 % (11.5-14.5)
--- NOTE | 2025-05-09 09:42 | W.PN.UPDATE ---
Update Note
Progress Note Update
S/P 2 days partial left hallux amputation for acute osteomyelitis. Likely surgical cure.
Patient is now afebrile (fever likely due to anesthesia)
Surgical site is stable, viable, with no local signs of infection present
WB Left foot in wedged Darco shoe only.
Anticipate discharge to home today.
PO antibiotics as per ID.
Dressings to be kept clean, dry and intact until seen in office.
RTO in my office on 05/13/25.
[2025-05-09 09:52] LABS: Blood Urea Nitrogen 15 mg/dl (9-20); Calcium 9.5 mg/dl (8.4-10.2); Carbon Dioxide 21 mmol/L (22-30); Chloride 109 mmol/L (98-107); Estimated Creatinine Clearance 81 ml/min; Glucose 148 mg/dl (70-99); Potassium 4.3 mmol/L (3.5-5.1); Sodium 139 mmol/L (135-145); eGFR > 60.00
--- NOTE | 2025-05-09 11:03 | W.PN.ID1 ---
Date of Service
Date of Service: May 09, 2025
Today's Communication
Continue Augmentin 875mg po bid x 7 more days.
ID will sign off.
Assessment / Plan
# Acute osteomyelitis of the left great toe
# Purulent cellulitis of the left great toe
# Post-op fever x 1 resolved
# Diabetes mellitus with neuropathy
- 05/07 s/p partial toe amputation -> should achieve surgical cure.
- OR MSSA
-Continue Augmentin 875mg po bid x 7 more days.
ID will sign off.
# Additional Past Medical History:
Diabetes mellitus
Neuropathy
Hypertension
Anxiety/depression
AAA
Class III obesity BMI 47
Chief Complaint
-: Cellulitis
Subjective / Review of Systems
No complaints.
Vital Signs / Physical Exam
Vital Signs
Vital Signs
Temp Pulse Resp BP Pulse Ox
97.7 F 76 16 141/69 98
05/09/25 07:55 05/09/25 07:55 05/09/25 07:55 05/09/25 07:55 05/09/25 07:55
Selected Entries
05/08/25
15:45
Temp 101.6 F H
Physical Exam
Constitutional: No Acute Distress
Pulmonary: Clear
Gastrointestinal: Soft, Non Tender and Non Distended
Wound: Other (Left foot dressing dry)
Neurological: AO x 3
Objective Data
Lab Data
Lab Results
05/09/25 08:33
05/09/25 08:33
ESR 97 mm/hour (0-20) H 05/06/25 06:29
Estimated Creat Clear 81 ml/min 05/09/25 08:33
Total Bilirubin 0.9 mg/dl (0.2-1.3) 05/04/25 06:22
AST 41 U/L (17-59) 05/04/25 06:22
ALT 27 U/L (0-50) 05/04/25 06:22
Alkaline Phosphatase 54 U/L (38-126) 05/04/25 06:22
C-Reactive Protein 15.40 mg/L (0.0-10.00) H 05/04/25 06:22
Most recent labs reviewed.
Micro Results:
05/07/25 10:51 Tissue Culture - Preliminary
Toe S aureus-Methicillin Sensitive
Gram Stain - Preliminary
05/03/25 14:54 Blood Culture - Final
Blood/Venous No Growth - Final Report
05/03/25 14:54 Blood Culture - Final
Blood/Venous No Growth - Final Report
05/07/25 10:51 Anaerobic Culture - Preliminary
Toe Culture pending. Anaerobic cultures are examined after 3
days incubation. Additional information to follow.
05/03/25 18:39 MRSA Screen - Final
Nose No Methicillin Resistant Staphylococcus aureus isolated.
05/05/25 MRI LLE: Acute osteomyelitis of the first distal phalanx adjacent to the distal first toe soft tissue wound
[2025-05-09 12:24] LABS: Glucose - Point of Care 173 mg/dl (70-99)
[2025-05-09 12:42] VITALS: BP 163/87; PULSE 76; O2SAT 95
[2025-05-09 12:44] VITALS: BP 163/87; PULSE 76; O2SAT 95
[2025-05-09 12:59] VITALS: BP 157/88
--- NOTE | 2025-05-09 14:43 | VNURNOTE ---
Was notified by CM that pt in need of VN. Chart reviewed. Pt DC'ed before liaison could meet w/him. Called his cell phone, no answer, left message requesting call back. PM- [facility] referral placed in [facility].
--- NOTE | 2025-05-09 15:05 | CM ---
Met with patient and his at bedside. Reviewed IMM. Patient's signed IMM, it was reviewed and now on chart. Referral made to VN. No further needs were expressed.
Patient's transporting spouse home.
Plan: Case management will continue to follow and assist with discharge planning. Home with VN.
--- NOTE | 2025-05-09 16:02 | W.DCSUMMARY ---
Addendum entered and electronically signed by Osiel Feng MD 05/09/25 21:18:
Read, reviewed, and agree. See same day progress note for additional details.
Vito Feng MD
Original Note:
Documented by User: Diaz Juárez MD, Resident 05/09/25 16:21
Discharge Summary
Discharge Data
Date of Admission: 05/03/25
Date of Discharge: 05/09/25
-
Pending Results: Yes (Anaerobic culture)
Hospital Course
Discharging Physician : Diaz Juárez MD ; Osiel Feng MD
Disposition : Home with home care
Primary care physician : Esther vergara
Principal Discharge diagnosis : Sepsis secondary to diabetic left great toe osteomyelitis with surrounding cellulitis
Chronic Discharge diagnosis : SOL on CKD, insulin-dependent diabetes, hypertension, anxiety, history abdominal aortic aneurysm, morbid obesity
Hospital Course : 74-year-old male with history of insulin requiring diabetes presenting in the emergency department with complaints of left foot pain, swelling and redness. He was meeting SIRS criteria and was admitted to the hospital for further
evaluation.
1- Sepsis secondary to diabetic left great toe osteomyelitis with surrounding cellulitis
Foot x-ray did not show any acute abnormalities and he also had normal bilateral CARLOS. Podiatry was consulted and given the suspicion of cellulitis he was started on IV Zosyn which he remained on for 6 days and was transitioned to Augmentin p.o. at
the time of discharge. His insulin prescription was sent to the pharmacy to be utilized after discharge. During his stay we also performed blood cultures which remain negative. He received IV Dilaudid and Tylenol for pain. He had a bedside
excisional debridement of nonviable and hypergranular skin of the left great toe with podiatry on 05/04. Eventually decision was made for surgery and he had partial hallux amputation on 05/07/2024. Tissue cultures were obtained which showed Staph
aureus and her antibiotics were continued. Her anaerobic cultures remain pending at the time of discharge. He was instructed to follow-up with podiatry outpatient. Also left foot weightbearing only with the surgical shoe. He verified
understanding. He was stable for discharge and high risk case manager health arranged visiting nurse to help with the wound care and dressings.
2- SOL on possible CKD
In addition to his sepsis he also had SOL which was likely related to the sepsis and he was started on IV fluids which eventually helped to resolving the SOL.
4-Uxnxmah-bsidytikn diabetes with diabetic neuropathy
His home Januvia and home insulin was continued. We hold metformin during his stay at the hospital and A1c was 6.8.
4-Hypertension
His home losartan was on hold during his stay given the SOL however it was resumed at the time of discharge
5-Anxiety
His home citalopram was continued during his stay
6-Morbidly obese; BMI of 47
Encouraged low-carb diet, daily exercise.
Important imaging findings : Foot x-ray 05/03/2025.
No finding to suggest recent cortical fracture or focal cortical bony destructive process.
MR Left Le Joint W W/o:
Acute osteomyelitis of the first distal phalanx adjacent to the distal first toe soft tissue wound.
US Periph Art LOWER Ext w CARLOS:
IMPRESSION:
1. Normal ankle brachial indices on each side. Normal toe brachial indices.
2. Minimal arterial plaque, without focal significant arterial stenosis demonstrated on either side.
3. Normal spectral Doppler waveform analysis of each lower extremity.
Foot x-ray 05/07/2025
Interval partial resection of the distal left first toe
Procedure findings : Partial hallux amputation, left. On 05/07/2025
Discharge Plan
-
Patient Disposition: Home with Home Care
Discharge Diagnosis/Procedures: Sepsis secondary to diabetic left great toe osteomyelitis with surrounding cellulitis
Condition: Fair
Diet: Diabetic, Carb Controlled
Activity: Do not bear weight L leg
Additional Activity: weight bearing in left shoe with wedge darco shoe only
Driving Restrictions: Not until seen by your Dr
Bathing Restrictions: OK to Shower
Other Services: VN
Activity Restrictions/Additional Instructions:
Wound Care Instructions
L partial great toe amp site-local care as per knitted garment finisher's instructions.
DARCO SHOE WEIGHT BEARING L FOOT IN SURGICAL SHOE FROM BED TO BATHROOM ONLY.
Elevate heels off bed with pillow/s.
Follow up with Dr. Luis Angel Sosa knitted garment finisher.
Referrals:
Viral Sosa DPM [Specified Professional Personl, Podiatry] - 05/13/25
Esther Vergara PA [Family Provider, General] - in less than 1 week
Additional Discharge Medication Instructions: Take amoxicillin clavulanate 1 tab by mouth twice daily to complete course of 7 days
Please take Januvia 100 mg tablet daily if you are taking more than that please follow-up with the family doctor as the maximum dose is 100 mg daily
Prescriptions:
New
amoxicillin-pot clavulanate 875-125 mg Tablet
1 tab PO Q12 Qty: 13 0RF
Continued
naproxen sodium [Aleve] 220 MG tablet
660 mg PO PRN PRN (Reason: mild pain)
lorazepam 1 MG tablet
1 mg PO Q4HPRN PRN (Reason: anxiety) Qty: 20 0RF
Patient Comments:
last filled 10/30/2023 #10, but pt states that he takes it every day
metformin 1,000 MG tablet
1,000 mg PO BID
losartan 100 mg Tablet
100 mg PO DAILY
citalopram 40 mg Tablet
40 mg PO DAILY
insulin lispro protamin-lispro [Humalog Mix 75-25 KwikPen] 100 unit/mL (75-25) Insulin Pen
30 unit SC BID
Januvia 100 mg Tablet
200 mg PO DAILY
Patient Comments:
pt states that he takes 200mg daily, but pharmacy has no record of this being filled. pt states that he uses only one pharmacy
Discharge Orders:
Discharge Patient (As Directed); Ordered 05/09/25
Ordered By: Diaz Juárez
Discharge Date and Time
Discharge Date/Time: 05/09/25 14:22
Print Language: GREENLANDIC

Documented by User: Osiel Feng MD 05/09/25 21:10
Discharge Summary
Discharge Data
Date of Admission: 05/03/25
Date of Discharge: 05/09/25
Discharge Plan
-
Patient Disposition: Home with Home Care
Discharge Diagnosis/Procedures: Sepsis secondary to diabetic left great toe osteomyelitis with surrounding cellulitis
Condition: Fair
Diet: Diabetic, Carb Controlled
Activity: Do not bear weight L leg
Additional Activity: weight bearing in left shoe with wedge darco shoe only
Driving Restrictions: Not until seen by your Dr
Bathing Restrictions: OK to Shower
Other Services: VN
Activity Restrictions/Additional Instructions:
Wound Care Instructions
L partial great toe amp site-local care as per knitted garment finisher's instructions.
DARCO SHOE WEIGHT BEARING L FOOT IN SURGICAL SHOE FROM BED TO BATHROOM ONLY.
Elevate heels off bed with pillow/s.
Follow up with Dr. Luis Angel Sosa knitted garment finisher.
Referrals:
Viral Sosa DPM [Specified Professional Personl, Podiatry] - 05/13/25
Esther Vergara PA [Family Provider, General] - in less than 1 week
Additional Discharge Medication Instructions: Take amoxicillin clavulanate 1 tab by mouth twice daily to complete course of 7 days
Please take Januvia 100 mg tablet daily if you are taking more than that please follow-up with the family doctor as the maximum dose is 100 mg daily
Prescriptions:
New
amoxicillin-pot clavulanate 875-125 mg Tablet
1 tab PO Q12 Qty: 13 0RF
Continued
naproxen sodium [Aleve] 220 MG tablet
660 mg PO PRN PRN (Reason: mild pain)
lorazepam 1 MG tablet
1 mg PO Q4HPRN PRN (Reason: anxiety) Qty: 20 0RF
Patient Comments:
last filled 10/30/2023 #10, but pt states that he takes it every day
metformin 1,000 MG tablet
1,000 mg PO BID
losartan 100 mg Tablet
100 mg PO DAILY
citalopram 40 mg Tablet
40 mg PO DAILY
insulin lispro protamin-lispro [Humalog Mix 75-25 KwikPen] 100 unit/mL (75-25) Insulin Pen
30 unit SC BID
Januvia 100 mg Tablet
200 mg PO DAILY
Patient Comments:
pt states that he takes 200mg daily, but pharmacy has no record of this being filled. pt states that he uses only one pharmacy
Discharge Orders:
Discharge Patient (As Directed); Ordered 05/09/25
Ordered By: Diaz Juárez
Discharge Date and Time
Discharge Date/Time: 05/09/25 14:22
Print Language: GREEN[place]
== END 2025-05-09 14:22 | disposition home health service (06) | DRG 854 ==
LOC: 4 EAST ACU 17:20
PROVIDERS: Physician Assistant; ADMITTING PHYSICIAN Internal Medicine; ATTENDING PHYSICIAN Family Medicine; CONSULT PHYSICIAN Internal Medicine Infectious Disease; CONSULT PHYSICIAN Podiatrist Foot & Ankle Surgery; EMERGENCY PHYSICIAN Emergency Medicine; FAMILY PHYSICIAN Physician Assistant Medical
PROC: 0Y6Q0Z3 Detachment at Left 1st Toe, Low, Open Approach (ICD-10-PCS; 2025-05-07)
DX: A41.9 Sepsis, unspecified organism (principal); L03.116 Cellulitis of left lower limb; N17.9 Acute kidney failure, unspecified; Z68.42 Body mass index [BMI] 45.0-49.9, adult; M86.172 Other acute osteomyelitis, left ankle and foot; E11.628 Type 2 diabetes mellitus with other skin complications; E11.40 Type 2 diabetes mellitus with diabetic neuropathy, unspecified; E11.69 Type 2 diabetes mellitus with other specified complication; F41.9 Anxiety disorder, unspecified; F32.A Depression, unspecified; E11.22 Type 2 diabetes mellitus with diabetic chronic kidney disease; N18.9 Chronic kidney disease, unspecified; I10 Essential (primary) hypertension; E66.813 Obesity, class 3; Z86.79 Personal history of other diseases of the circulatory system; Z87.891 Personal history of nicotine dependence; Z79.4 Long term (current) use of insulin; Z79.84 Long term (current) use of oral hypoglycemic drugs; Z79.899 Other long term (current) drug therapy; Z83.3 Family history of diabetes mellitus; B35.1 Tinea unguium; G47.33 Obstructive sleep apnea (adult) (pediatric)
CPT/HCPCS: 73620; 73630; 73723; 80048; 80053; 82962; 83036; 85025; 85027; 85652; 86140; 87040; 87070; 87075; 87147; 87176; 87186; 87205; 88304; 88311; 93922; 93925; 96365; 96367; 97162; 97164; 97166; 97168; 99284; A9575